=== PATIENT | male | born 1935 | race Caucasian/White ===

== ENCOUNTER 2016-11-08 09:34 | Inpatient (IN) | payer MEDICARE ==
[~2016-11-08] VITALS: Ht 167.6 cm; Wt 68.5 kg
[2016-11-08] VITALS (9 sets, daily range): BP systolic 138–171; BP diastolic 84–100; PULSE 63–112; RESP 20–30; TEMP 97.6–98.3; O2SAT 94–98
[~2016-11-08 09:34] MED LIST: ASPI325T PO; ATOR10 PO; CARB200T16 PO; DOXA1 PO; LISI-360 PO
[2016-11-08] MEDS ORDERED: SODIUM CHLOR 0.9% 1000 ML INJ 1,000 ML IV SCH (10:15)
--- NOTE | 2016-11-08 10:21 | PD ---
HPI Chief Complaint: Fall Time Seen by Provider: 09:58 Travel History International Travel<30 days: No Contact w/Intl Traveler<30days: No Traveled to known affect area: No History of Present Illness HPI 81-year-old male complaining of generalized malaise and weakness. Patient states that he fell a week ago on his knee and had transient bilateral knee and bilateral hip pain at that time. Patient states that the hip pain and the pain resolved completely. Patient states that he has increasing postoperative weakness since then. Patient denies any head injury at that time. Patient states that he fell again last night. Patient is not sure whether he hit his head. Patient states that he has mild headache. Patient denies any neck pain. Patient denies any chest pain or shortness of breath. Patient denies abdominal pain. Patient denies any nausea vomiting diarrhea. Patient denies any dysuria or frequency. Patient denies any fever chills. Patient states that he has history of CVA in the past. Patient denies any history alcohol or illicit drug abuse. Reviewing medical record, patient was admitted to [facility] April 11, 2013 for acute CVA, CAD, hypertension, BPH, leukopenia and thrombocytopenia. Patient was discharged home on aspirin, Plavix and atorvastatin. Patient states that he has not been taking the medications recently. Patient states that he take Plavix once in a while. Patient has history of diabetes, diet control. PFSH Past Medical History Hx Anticoagulant Therapy: Yes Asthma: No Heart Rhythm Problems: No Cancer: No Cardiovascular Problems: Yes High Cholesterol: No Chemotherapy: No Chest Pain: Yes Congestive Heart Failure: No COPD: No Cerebrovascular Accident: Yes (current admission) Diabetes: Yes Patient Takes Glucophage: No Endocrine: Yes Genitourinary: Yes (PROSTATE) Hypertension: Yes Musculoskeletal: No Neurologic: No Psychiatric: No Respiratory: No Migraines: No Seizures: No Sleep Apnea: No Past Surgical History Abdominal Surgery: No Cardiac Surgery: Yes Coronary Stent: Yes (2010) Ear Surgery: No Endocrine Surgery: No Eye Surgery: Yes (cataract surgery left eye) Genitourinary Surgery: No Gynecologic Surgery: No Oral Surgery: No Thoracic Surgery: No Other Surgery: Yes (heart/stent placed 5 years ago) Social History Alcohol Use: No Tobacco Use: No Substance Use: No Allergies-Medications (Allergen,Severity, Reaction): Coded Allergies: No Known Allergies (Unverified , 07/09/11) Reported Meds & Prescriptions Reported Meds & Active Scripts Active Reported Plavix (Clopidogrel Bisulfate) 75 Mg Tab 75 Mg PO DAILY Review of Systems General / Constitutional: No: Fever Eyes: No: Visual changes HENT: No: Headaches Cardiovascular: No: Chest Pain or Discomfort Respiratory: No: Shortness of Breath Gastrointestinal: No: Abdominal Pain Genitourinary: No: Dysuria Musculoskeletal: No: Pain Skin: No Rash Neurologic: No: Weakness Psychiatric: No: Depression Endocrine: No: Polydipsia Hematologic/Lymphatic: No: Easy Bruising Physical Exam Narrative GENERAL: Well-nourished, well-developed patient. SKIN: Focused skin assessment warm/dry. HEAD: Normocephalic. EYES: No scleral icterus. No injection or drainage. NECK: Supple, trachea midline. No JVD or lymphadenopathy. CARDIOVASCULAR: Regular rate and rhythm without murmurs, gallops, or rubs. RESPIRATORY: Breath sounds equal bilaterally. No accessory muscle use. GASTROINTESTINAL: Abdomen soft, non-tender, nondistended. MUSCULOSKELETAL: No cyanosis, or edema. BACK: Nontender without obvious deformity. No CVA tenderness. neurologic exam: Patient awake and alert oriented 3. No obvious focal neurological deficit. Data Data Last Documented VS Vital Signs Date Time Temp Pulse Resp B/P Pulse Ox O2 Delivery O2 Flow Rate FiO2 11/08/16 13:21 100 20 139/87 96 11/08/16 09:38 97.6 Room Air Orders Electrocardiogram (11/08/16 10:06) Complete Blood Count With Diff (11/08/16 10:06) Comprehensive Metabolic Panel (11/08/16 10:06) Prothrombin Time / Inr (Pt) (11/08/16 10:06) Act Partial Throm Time (Ptt) (11/08/16 10:06) Urinalysis - C+S If Indicated (11/08/16 10:06) Chest, Single Ap (11/08/16 10:06) Ct Brain W/O Iv Contrast(Rout) (11/08/16 10:06) Iv Access Insert/Monitor (11/08/16 10:06) Ecg Monitoring (11/08/16 10:06) Oximetry (11/08/16 10:06) Sodium Chlor 0.9% 1000 Ml Inj (Ns 1000 M (11/08/16 10:15) Ct Lumb Spine W/O Contrast (11/08/16 10:11) Pelvis, Ap Only (Routine) (11/08/16 10:11) Labs Laboratory Tests Test 11/08/16 11/08/16 10:05 11:15 White Blood Count 3.8 TH/MM3 Red Blood Count 4.33 MIL/MM3 Hemoglobin 13.6 GM/DL Hematocrit 39.2 % Mean Corpuscular Volume 90.5 FL Mean Corpuscular Hemoglobin 31.4 PG Mean Corpuscular Hemoglobin 34.7 % Concent Red Cell Distribution Width 12.6 % Platelet Count 164 TH/MM3 Mean Platelet Volume 9.2 FL Neutrophils (%) (Auto) 61.3 % Lymphocytes (%) (Auto) 23.0 % Monocytes (%) (Auto) 13.1 % Eosinophils (%) (Auto) 2.2 % Basophils (%) (Auto) 0.4 % Neutrophils # (Auto) 2.3 TH/MM3 Lymphocytes # (Auto) 0.9 TH/MM3 Monocytes # (Auto) 0.5 TH/MM3 Eosinophils # (Auto) 0.1 TH/MM3 Basophils # (Auto) 0.0 TH/MM3 CBC Comment DIFF FINAL Differential Comment Prothrombin Time 12.1 SEC Prothromb Time International 1.1 RATIO Ratio Activated Partial 28.7 SEC Thromboplast Time Sodium Level 133 MEQ/L Potassium Level 3.5 MEQ/L Chloride Level 98 MEQ/L Carbon Dioxide Level 27.3 MEQ/L Anion Gap 8 MEQ/L Blood Urea Nitrogen 20 MG/DL Creatinine 0.89 MG/DL Estimat Glomerular Filtration 82 ML/MIN Rate Random Glucose 101 MG/DL Calcium Level 8.8 MG/DL Total Bilirubin 0.6 MG/DL Aspartate Amino Transf 88 U/L (AST/SGOT) Alanine Aminotransferase 42 U/L (ALT/SGPT) Alkaline Phosphatase 87 U/L Total Protein 7.7 GM/DL Albumin 3.6 GM/DL Urine Color YELLOW Urine Turbidity CLEAR Urine pH 6.0 Urine Specific [place] 1.028 Urine Protein 100 mg/dL Urine Glucose (UA) NEG mg/dL Urine Ketones NEG mg/dL Urine Occult Blood SMALL Urine Nitrite NEG Urine Bilirubin NEG Urine Urobilinogen LESS THAN 2.0 MG/DL Urine Leukocyte Esterase MOD Urine RBC 4 /hpf Urine WBC 8 /hpf Urine Squamous Epithelial 1 /hpf Cells Urine Mucus FEW /lpf Microscopic Urinalysis Comment CULT NOT INDICATED MDM Medical Decision Making Medical Screen Exam Complete: Yes Emergency Medical Condition: Yes Medical Record Reviewed: Yes Interpretation(s) Last Impressions Pelvis X-Ray 11/08/16 1011 Signed Impressions: Service Date/Time: Tuesday, November 08, 2016 10:38 - CONCLUSION: 1. No acute fracture. Joe Pritchard MD Lumbar Spine CT 11/08/16 1011 Signed Impressions: Service Date/Time: Tuesday, November 08, 2016 10:42 - CONCLUSION: 1. Remote fracture of S1-S2 with bony fusion and residual grade 4 anterolisthesis. 2. Remote fusion L3-4. 3. 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 4. Mild superior endplate compression deformity of L1 which appears chronic. No definite acute fracture. Bones are osteopenic. There is fusion across the posterior elements in the lower lumbar spine. Joe Pritchard MD Head CT 11/08/16 1006 Signed Impressions: Service Date/Time: Tuesday, November 08, 2016 10:39 - CONCLUSION: 1. 2.9 cm acute hemorrhage in the right thalamus with trace hemorrhage also present in the occipital horn right lateral ventricle. No significant mass effect. Chronic small vessel white matter ischemic changes similar to 2013. Joe Pritchard MD Chest X-Ray 11/08/16 1006 Signed Impressions: Service Date/Time: Tuesday, November 08, 2016 10:43 - CONCLUSION: 1. No acute findings. Linear scarring or atelectasis right midlung. Joe Pritchard MD 13 12 PM. CBC WBC 3.8. Normal differential. Sodium 133. BUN 20. UA positive with few WBC RBC Differential Diagnosis Differential diagnoses including head injury, chest injury, abdominal injury, extremity injury, electrolyte abnormality, dehydration, TIA, CVA, spinal cord lesion. Narrative Course 81-year-old male with generalized weakness especially lower extremity. Patient had a fall a week ago. Patient states that he fell again last night. Diagnosis Primary Impression: Hemorrhagic cerebrovascular accident (CVA) Admitting Information Admitting Physician Requests: Admit Leonard Rocha MD Nov 08, 2016 10:21
[2016-11-08 10:26] LABS: AUTOMATED NEUTROPHIL # 2.3 TH/MM3 (1.8-7.7); BASOPHIL % 0.4 % (0.0-2.0); EOSINOPHIL # 0.1 TH/MM3 (0-0.4); EOSINOPHIL % 2.2 % (0.0-4.0); HEMATOCRIT 39.2 % (39.0-51.0); HEMO FLAGS DIFF FINAL; LYMPHOCYTE # 0.9 TH/MM3 (1.0-4.8); MEAN CELL VOLUME 90.5 FL (80.0-100.0); MEAN CORPUSCULAR HEMOGLOBIN 31.4 PG (27.0-34.0); MEAN CORPUSCULAR HGB CONC 34.7 % (32.0-36.0); MONO % 13.1 % (0.0-8.0); NEUT % 61.3 % (16.0-70.0); PLATELET COUNT 164 TH/MM3 (150-450); RED BLOOD COUNT 4.33 MIL/MM3 (4.50-5.90); RED CELL DISTRIBUTION WIDTH 12.6 % (11.6-17.2); WHITE BLOOD COUNT 3.8 TH/MM3 (4.0-11.0)
[2016-11-08 10:34] LABS: APTT (PATIENT) 28.7 SEC (24.3-30.1); INTERNATIONAL NORMALIZED RATIO 1.1 RATIO; PROTHROMBIN TIME - PATIENT 12.1 SEC (9.8-11.6)
[2016-11-08 10:47] LABS: ALT (GPT) 42 U/L (12-78); ANION GAP 8 MEQ/L (5-15); AST (GOT) 88 U/L (15-37); BICARBONATE 27.3 MEQ/L (21.0-32.0); BLOOD UREA NITROGEN 20 MG/DL (7-18); CHLORIDE 98 MEQ/L (98-107); GLOMERULAR FILTRATION RATE 82 ML/MIN (>89); POTASSIUM 3.5 MEQ/L (3.5-5.1); SODIUM (NA) 133 MEQ/L (136-145)
[2016-11-08 10:50] LABS: ALKALINE PHOSPHATASE 87 U/L (45-117); TOTAL BILIRUBIN ADULT 0.6 MG/DL (0.2-1.0)
--- NOTE | 2016-11-08 10:50 | RADRPT ---
EXAM DATE/TIME: 11/08/2016 10:43 [facility] COMPARISON: CHEST SINGLE AP, April 12, 2013, 6:40. INDICATIONS : Patient fell last night. Complaint of dizziness and short of breath. MEDICAL HISTORY : None. SURGICAL HISTORY : None. ENCOUNTER: Initial ACUITY: 1 day PAIN SCORE: 0/10 LOCATION: Bilateral chest FINDINGS: A single view of the chest demonstrates linear scarring right midlung. No consolidation or significan t effusion. Tortuous aorta. Advanced osteoarthritis of the shoulder joints with severe rotator cuff d isease on the right. CONCLUSION: 1. No acute findings. Linear scarring or atelectasis right midlung. Joe Pritchard MD on November 08, 2016 at 10:46 Board Certified Radiologist. This report was verified electronically.
--- NOTE | 2016-11-08 10:52 | RADRPT ---
EXAM DATE/TIME: 11/08/2016 10:38 [facility] COMPARISON: No previous studies available for comparison. INDICATIONS : Patient fell last night. Complaint of dizziness and short of breath. MEDICAL HISTORY : None. SURGICAL HISTORY : None. ENCOUNTER: Initial ACUITY: 1 day PAIN SCORE: 0/10 LOCATION: Bilateral Pelvis. FINDINGS: A single frontal view of the pelvis demonstrates no evidence of fracture. The bony pelvic ring is in tact. Bony mineralization is normal. The soft tissues are intact. CONCLUSION: 1. No acute fracture. Joe Pritchard MD on November 08, 2016 at 10:49 Board Certified Radiologist. This report was verified electronically.
--- NOTE | 2016-11-08 11:07 | RADRPT ---
EXAM DATE/TIME: 11/08/2016 10:39 [facility] COMPARISON: MRI BRAIN W/O CONTRAST, April 12, 2013, 7:55. INDICATIONS : Fall last night. RADIATION DOSE: 19.97 CTDIvol (mGy) MEDICAL HISTORY : Cardiovascular disease. Cerebrovascular disease. Hypertension.Diabetes SURGICAL HISTORY : None. ENCOUNTER: Initial ACUITY: 1 day PAIN SCALE: 0/10 LOCATION: cranial TECHNIQUE: Multiple contiguous axial images were obtained of the head. Using automated exposure control and adj ustment of the mA and/or kV according to patient size, radiation dose was kept as low as reasonably a chievable to obtain optimal diagnostic quality images. DICOM format image data is available electro nically for review and comparison. FINDINGS: There is an acute 2.9 cm hemorrhage in the right thalamus without significant mass effect. No shift. There is underlying white matter ischemic change. There is some trace hemorrhage in the occipital horn of the right lateral ventricle. Physiologic calc ifications are present in the basal ganglia. No acute bony abnormalities. CONCLUSION: 1. 2.9 cm acute hemorrhage in the right thalamus with trace hemorrhage also present in the occipital horn right lateral ventricle. No significant mass effect. Chronic small vessel white matter ischemic changes similar to 2013. Joe Pritchard MD on November 08, 2016 at 11:02 Board Certified Radiologist. This report was verified electronically.
--- NOTE | 2016-11-08 11:45 | RADRPT ---
EXAM DATE/TIME: 11/08/2016 10:42 [facility] COMPARISON: No previous studies available for comparison. INDICATIONS : Lower back pain after fall. RADIATION DOSE: 19.97 CTDIvol (mGy) MEDICAL HISTORY : Cardiovascular disease. Hypertension. Diabetes mellitus type 2. SURGICAL HISTORY : None. ENCOUNTER: Initial ACUITY: 1 day PAIN SCALE: 6/10 LOCATION: lower back TECHNIQUE: Volumetric scanning of the lumbar spine was performed. Multiplanar reconstructions in the sagittal, coronal and oblique axial planes were performed. Using automated exposure control and adjustment of the mA and/or kV according to patient size, radiation dose was kept as low as reasonably achievable t o obtain optimal diagnostic quality images. DICOM format image data is available electronically for review and comparison. FINDINGS: There is a remote fracture at S1-2 with a grade 4 anterolisthesis of S1 on S2. There is fusion across S1-S2. There is also fusion across L3-4 without significant residual stenosis. Advanced degenerative disc disease is present at [id number]. There is a grade 1 retrolisthesis of L 2 on L3 associated with mild canal, lateral recess stenosis and bilateral bony foraminal stenosis. Th ere is a mild compression deformity superior endplate L1 which appears chronic. No other significant canal stenosis. Incidental note made of a presumed large left renal cyst. CONCLUSION: 1. Remote fracture of S1-S2 with bony fusion and residual grade 4 anterolisthesis. 2. Remote fusion L3-4. 3. Advanced degenerative disc disease in the upper lumbar spine with a grade 1 retrolisthesis of L2 o n L3 resulting in mild canal, lateral recess and bony foraminal stenosis. 4. Mild superior endplate compression deformity of L1 which appears chronic. No definite acute fractu re. Bones are osteopenic. There is fusion across the posterior elements in the lower lumbar spine. Joe Pritchard MD on November 08, 2016 at 11:35 Board Certified Radiologist. This report was verified electronically.
[2016-11-08 11:48] LABS: BLOOD, URINE SMALL (NEG); COMMENT (UR) CULT NOT INDICATED; CULTURE IF INDICATED CULT NOT INDICATED; GLUCOSE,URINE NEG (NEG); KETONE, URINE NEG (NEG); MUCUS URINE FEW /lpf (OCC); NITRITE,URINE NEG (NEG); SQUAMOUS EPITHELIAL CELL URINE 1 /hpf (0-5); URINE COLOR YELLOW (YELLW/STRAW)
[2016-11-08] MEDS ORDERED: PLAV75TA29 PO (13:22)
--- NOTE | 2016-11-08 15:20 | MB ---
cc: GLENN SEGOVIA M.D., HUNG M.D. DATE OF CONSULTATION: 11/08/[address] Rocha HISTORY OF PRESENT ILLNESS This is an 81-year-old gentleman who presented to the emergency room this morning with complaints of generalized weakness and malaise. He states yesterday he fell down and then began feeling weak. In the emergency room a CT scan of the brain was performed which shows a right thalamic bleed with a small amount of extension of blood into the right lateral ventricle. No mass effect or midline shift and no significant edema. Other than the complaint of generalized weakness the patient also has mild headache but no complaints of visual dysfunction. No complaints of motor or sensory loss. The patient's history is complicated by Plavix use. PAST MEDICAL HISTORY 1. Previous CVA. 2. Coronary artery disease. 3. Hypertension. 4. BPH. 5. Leukopenia. 6. Thrombocytopenia. MEDICATIONS His current medications are Plavix only. He states he was on a hypertensive medication but his physician discontinued it. ALLERGIES No known allergies to medications. HABITS The patient states he does not smoke and he does not use alcohol. REVIEW OF SYSTEMS The review of systems is pertinent as stated in HPI. Also pertinent for a history of chronic knee and hip pain as well as chronic back pain. PHYSICAL EXAMINATION GENERAL: This is a well-nourished, well-developed, slightly disheveled gentleman who is awake and alert in no acute distress. HEENT: Head is normocephalic, atraumatic. Pupils are equal and reactive to light. Extraocular movements are intact. NECK: Supple. Full range of motion. No posterior tenderness. HEART: Regular rate and rhythm. ABDOMEN: Soft and nontender. LUNGS: Equal breath sounds bilaterally. No rales or rhonchi. NEUROLOGIC: The patient is oriented x3. Normal mental status. Speech is intact comprehension. Cranial nerves II through XII are intact. Motor function 5/5 upper and lower extremities without drift. Sensory is intact to primary modalities. The patient has no extinction. Reflexes are hypoactive and symmetric. 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 PLAN The patient will be admitted to intensive care for observation. Repeat CT scan of the brain tomorrow morning. Plavix will be held MD LUCÍA Bartholomew /3:01 PM /3:12 PM
--- NOTE | 2016-11-08 15:40 | HHI.HP ---
HPI Service Critical Care Medicine Primary Care Physician Unknown Admission Diagnosis acute hemorrhagic CVA Diagnosis: Travel History International Travel<30 Days: No Contact w/Intl Traveler <30 Da: No Traveled to Known Affected Are: No History of Present Illness This is an 81-year-old man with a history of a recent prior ischemic stroke and coronary artery disease status post PCI 5 years ago who presents with frequent falling over the past few days. He per report his fallen twice, without injury , but he is not used to falling. He feels like he is dizzy and off balance. He has not passed out or had any presyncopal symptoms. He denies any palpitations. He denies chest pain, shortness of breath, fever, chills, fatigue. In the emergency department he was found to have a right basal ganglia intraparenchymal hemorrhage. He is somewhat of a poor historian and is difficult to get additional information from him. The remainder of the review of systems and history of present illness is negative. Review of Systems ROS Limitations: Poor Historian Respiratory: DENIES: Cough, Wheezing, Sputum production, Shortness of breath Cardiovascular: DENIES: Chest pain, Lower Extremity Edema Gastrointestinal: DENIES: Abdominal pain Neurologic: COMPLAINS OF: Poor Balance, DENIES: Abnormal gait, Headache, Localized weakness Past Family Social History Allergies: Coded Allergies: No Known Allergies (Unverified , 07/09/11) Past Medical History Prostate enlargement Hypertension The patient takes Plavix, he is not sure for what indication, but he states he has not been taking Plavix for the last 2 months because he ran out of his prescription and didn't think he really needed it. Past Surgical History Coronary artery stenting, 2010 Cataract surgery left eye Reported Medications Reportedly on Plavix. See above discussion Active Ordered Medications See MAR Family History reviewed with the patient and found to be noncontributory to his acute illness. Social History The patient states he used to use alcohol regularly, but quit a few years ago. Denies tobacco. Denies drugs of abuse Physical Exam Vital Signs Vital Signs Date Time Temp Pulse Resp B/P Pulse Ox O2 Delivery O2 Flow Rate FiO2 11/08/16 14:56 85 20 160/92 94 11/08/16 13:21 100 20 139/87 96 11/08/16 11:13 97 11/08/16 09:38 97.6 112 20 171/100 94 Room Air Physical Exam GENERAL: Elderly male, lying in bed, awake, alert HEENT: Normocephalic. Atraumatic. Pupils equal, round, reactive, conjugate. Mucous membranes are moist NECK: Trachea is midline. There is no JVD. CHEST: Equal chest rise. Unlabored respirations CARDIOVASCULAR: Normal rate, regular rhythm. Sinus by telemetry ABDOMEN: Soft, nontender, nondistended. No guarding. MUSCULOSKELETAL: Pulses 2+. No peripheral edema. NEUROLOGICAL: RASS 0. GCS 15. CAM -. Alert and oriented. No gross focal motor or sensory deficits. Musculoskeletal strength is 5 out of 5 in all 4 extremities. Sensation grossly intact. Cranial nerves intact. Laboratory Laboratory Tests Test 11/08/16 11/08/16 10:05 11:15 White Blood Count 3.8 Red Blood Count 4.33 Hemoglobin 13.6 Hematocrit 39.2 Mean Corpuscular Volume 90.5 Mean Corpuscular Hemoglobin 31.4 Mean Corpuscular Hemoglobin 34.7 Concent Red Cell Distribution Width 12.6 Platelet Count 164 Mean Platelet Volume 9.2 Neutrophils (%) (Auto) 61.3 Lymphocytes (%) (Auto) 23.0 Monocytes (%) (Auto) 13.1 Eosinophils (%) (Auto) 2.2 Basophils (%) (Auto) 0.4 Neutrophils # (Auto) 2.3 Lymphocytes # (Auto) 0.9 Monocytes # (Auto) 0.5 Eosinophils # (Auto) 0.1 Basophils # (Auto) 0.0 CBC Comment DIFF FINAL Differential Comment Prothrombin Time 12.1 Prothromb Time International 1.1 Ratio Activated Partial 28.7 Thromboplast Time Sodium Level 133 Potassium Level 3.5 Chloride Level 98 Carbon Dioxide Level 27.3 Anion Gap 8 Blood Urea Nitrogen 20 Creatinine 0.89 Estimat Glomerular Filtration 82 Rate Random Glucose 101 Calcium Level 8.8 Total Bilirubin 0.6 Aspartate Amino Transf 88 (AST/SGOT) Alanine Aminotransferase 42 (ALT/SGPT) Alkaline Phosphatase 87 Total Protein 7.7 Albumin 3.6 Urine Color YELLOW Urine Turbidity CLEAR Urine pH 6.0 Urine Specific [place] 1.028 Urine Protein 100 Urine Glucose (UA) NEG Urine Ketones NEG Urine Occult Blood SMALL Urine Nitrite NEG Urine Bilirubin NEG Urine Urobilinogen LESS THAN 2.0 Urine Leukocyte Esterase MOD Urine RBC 4 Urine WBC 8 Urine Squamous Epithelial 1 Cells Urine Mucus FEW Microscopic Urinalysis Comment CULT NOT INDICATED Result Diagram: 11/08/16 1005 11/08/16 1005 Imaging Last Impressions Pelvis X-Ray 11/08/16 1011 Signed Impressions: Service Date/Time: Tuesday, November 08, 2016 10:38 - CONCLUSION: 1. No acute fracture. Joe Pritchard MD Lumbar Spine CT 11/08/16 1011 Signed Impressions: Service Date/Time: Tuesday, November 08, 2016 10:42 - CONCLUSION: 1. Remote fracture of S1-S2 with bony fusion and residual grade 4 anterolisthesis. 2. Remote fusion L3-4. 3. 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 4. Mild superior endplate compression deformity of L1 which appears chronic. No definite acute fracture. Bones are osteopenic. There is fusion across the posterior elements in the lower lumbar spine. Joe Pritchard MD Head CT 11/08/16 1006 Signed Impressions: Service Date/Time: Tuesday, November 08, 2016 10:39 - CONCLUSION: 1. 2.9 cm acute hemorrhage in the right thalamus with trace hemorrhage also present in the occipital horn right lateral ventricle. No significant mass effect. Chronic small vessel white matter ischemic changes similar to 2013. Joe Pritchard MD Chest X-Ray 11/08/16 1006 Signed Impressions: Service Date/Time: Tuesday, November 08, 2016 10:43 - CONCLUSION: 1. No acute findings. Linear scarring or atelectasis right midlung. Joe Pritchard MD Assessment and Plan Assessment and Plan Assessment: 81yM s/p recent ischemic stroke now with right BG IPH with only neurologic presentation being frequent falls. Per the patient's report, he has not taken any plavix in 2 months because he ran out and stopped taking it. We will admit to the ICU, frequent neuro checks, 24h interval head CT, and blood pressure control. Plan: Right basal ganglia IPH -- frequent neuro checks -- interval head CT -- sbp < 150 -- nursing bedside swallow evaluation and advance diet. -- neurosurgery consult Hypertension -- prn labetalol, hydralazine -- goal sbp < 150 Antiplatelet therapy -- unknown indication, but likely was the ischemic stroke -- continue to hold antiplatelet and anticoagulation therapy given new IPH SCDs. PPI Dispo: admit to the ICU. Dewey Baptiste MD Nov 08, 2016 15:40
[2016-11-08] MEDS ORDERED: MAGNESIUM SULFATE INJ 4 GM in SODIUM CHLORIDE 0.9% INJ 92 ML IV PRN (15:45)
[2016-11-08] MEDS ORDERED: MISCELLANEOUS NURSING INFORMATION XX SCH (15:45)
[2016-11-08] MEDS ORDERED: MAGNESIUM SULFATE INJ 2 GM in SODIUM CHLORIDE 0.9% INJ 96 ML IV PRN (15:45)
[2016-11-08] MEDS ORDERED: POTASSIUM PHOSPHATE MONOBASIC 500 MG TAB PO PRN (15:45)
[2016-11-08] MEDS ORDERED: MAGNESIUM OXIDE 400 MG TAB PO PRN (15:45)
[2016-11-08] MEDS ORDERED: SODIUM CHLORIDE 0.9% FLUSH 10 ML FLUSH IVF PRN (15:45)
[2016-11-08] MEDS ORDERED: RESP: ALBUTEROL 2.5 MG/IPRATROPIUM 0.5 MG NEB (PRN) INH (15:45)
[2016-11-08] MEDS ORDERED: POTASSIUM PHOSPHATE MONOBASIC 500 MG TAB PO/TUBE PRN (15:45)
[2016-11-08] MEDS ORDERED: POTASSIUM CHLOR 40 MEQ PREMIX 100 ML IV PRN ×2 (15:45)
[2016-11-08] MEDS ORDERED: LABETALOL HCL 100 MG/20 ML VIAL IV PUSH PRN (15:45)
[2016-11-08] MEDS ORDERED: POTASSIUM PHOSPHATE INJ 30 MMOL in SODIUM CHLOR 0.9% 250 ML INJ 250 ML IV PRN (15:45)
[2016-11-08] MEDS ORDERED: POTASSIUM CHLOR 20 MEQ PREMIX 100 ML IV PRN ×2 (15:45)
[2016-11-08] MEDS ORDERED: ONDANSETRON HCL 4 MG/2 ML VIAL IV PRN ×2 (15:45)
[2016-11-08] MEDS ORDERED: DEXTROSE 50% IN WATER 50 ML VIAL(D50) IV PUSH PRN (15:45)
[2016-11-08] MEDS ORDERED: CHLORHEXIDINE GLUCONATE 2 % 1 PACK (2 CLOTHS) TOP PRN (15:45)
[2016-11-08] MEDS ORDERED: SODIUM PHOSPHATE INJ 30 MMOL in SODIUM CHLOR 0.9% 250 ML INJ 240 ML IV PRN (15:45)
[2016-11-08] MEDS: INSULIN NovoLIN REGULAR SUPPLEMENTAL SCALE SQ SCH ×2 (16:00→20:37)
[2016-11-08] MEDS: SODIUM CHLOR 0.9% 1000 ML INJ 1,000 ML IV SCH (16:16)
--- NOTE | 2016-11-08 16:34 | EKG ---
Date Performed: 11/08/2016 Time Performed: 11:12:30 PTAGE: 81 years EKG: Sinus rhythm WITH OCCASIONAL VENTRICULAR PREMATURE COMPLEXES WITH OCCASIONAL SUPRAVENTRICULAR PREMATURE COMPLEXES RIGHT BUNDLE BRANCH BLOCK LEFT ANTERIOR FASCICULAR BLOCK ABNORMAL ECG PREVIOUS TRACING : 11/08/2016 09.55 Compared to prior tracing no significant change DOCTOR: Varghese Corea Interpretating Date/Time 11/08/2016 16:33:34
[2016-11-08] MEDS: hydrALAZINE HCL 20 MG/ML VIAL IV PUSH PRN ×2 (18:28→20:36)
[2016-11-08] MEDS: FAMOTIDINE 20 MG TAB PO SCH (19:28)
[2016-11-08] MEDS: ACETAMINOPHEN 325 MG TAB PO PRN (19:28)
[2016-11-08] MEDS: DOCUSATE SODIUM 50 MG/SENNA 8.6 MG TAB PO SCH (19:28)
[2016-11-08] MEDS: ACETAMINOPHEN/HYDROcodone 325 MG/5 MG TAB PO PRN (21:24)
[2016-11-08] MEDS: SODIUM CHLORIDE 0.9% FLUSH 10 ML FLUSH IV FLUSH SCH (21:24)
[2016-11-09] VITALS (12 sets, daily range): BP systolic 115–151; BP diastolic 68–90; PULSE 92–108; RESP 16–25; TEMP 97.2–98.3; O2SAT 94–100
[2016-11-09] MEDS: hydrALAZINE HCL 20 MG/ML VIAL IV PUSH PRN (00:15)
[2016-11-09] MEDS: INSULIN NovoLIN REGULAR SUPPLEMENTAL SCALE SQ SCH ×5 (03:00→20:48)
[2016-11-09] MEDS: CHLORHEXIDINE GLUCONATE 2 % 1 PACK (2 CLOTHS) TOP SCH (04:00)
[2016-11-09] MEDS: SODIUM CHLOR 0.9% 1000 ML INJ 1,000 ML IV SCH ×2 (04:30→15:23)
[2016-11-09 04:42] LABS: HEMATOCRIT 40.9 % (39.0-51.0); MEAN CELL VOLUME 90.7 FL (80.0-100.0); MEAN CORPUSCULAR HEMOGLOBIN 31.7 PG (27.0-34.0); MEAN CORPUSCULAR HGB CONC 34.9 % (32.0-36.0); PLATELET COUNT 146 TH/MM3 (150-450); RED BLOOD COUNT 4.51 MIL/MM3 (4.50-5.90); RED CELL DISTRIBUTION WIDTH 12.6 % (11.6-17.2); REVIEW FLAG FINAL; WHITE BLOOD COUNT 4.1 TH/MM3 (4.0-11.0)
[2016-11-09 04:54] LABS: BICARBONATE 23.5 MEQ/L (21.0-32.0)
[2016-11-09 04:55] LABS: POTASSIUM 4.2 MEQ/L (3.5-5.1)
--- NOTE | 2016-11-09 06:28 | RADRPT ---
EXAM DATE/TIME: 11/09/2016 04:47 [place] COMPARISON: CT BRAIN W/O CONTRAST, November 08, 2016, 10:39. INDICATIONS : Follow up hemorrhage. RADIATION DOSE: 40.83 CTDIvol (mGy) MEDICAL HISTORY : Cerebrovascular disease. Hypertension. SURGICAL HISTORY : None. ENCOUNTER: Subsequent ACUITY: 1 day PAIN SCALE: 0/10 LOCATION: cranial TECHNIQUE: Multiple contiguous axial images were obtained of the head. Using automated exposure control and adj ustment of the mA and/or kV according to patient size, radiation dose was kept as low as reasonably a chievable to obtain optimal diagnostic quality images. DICOM format image data is available electro nically for review and comparison. 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 There is intraventricula r hemorrhage on the right. Scattered areas of low attenuation throughout the white matter. The ventri cles are normal for age. No evidence of midline shift, mass lesion or acute infarction. No extra-ax ial fluid collections are seen. POSTERIOR FOSSA: The cerebellum and brainstem are intact. The 4th ventricle is midline. The cerebellopontine angle i s unremarkable. EXTRACRANIAL: The visualized portion of the orbits is intact. SKULL: The calvaria is intact. No evidence of skull fracture. CONCLUSION: 1. 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 2. Small amount of intraventricular hemorrhage. 3. Chronic ischemic small vessel vasculopathy. King Johnson MD on November 09, 2016 at 6:25 Board Certified Radiologist. This report was verified electronically.
--- NOTE | 2016-11-09 07:18 | HHI.CCPN ---
Subjective Remarks/Hospital Course Hospital Course: This is an 81-year-old man with a history of a recent prior ischemic stroke and coronary artery disease status post PCI 5 years ago who presents with frequent falling over the past few days. He per report his fallen twice, without injury , but he is not used to falling. He feels like he is dizzy and off balance. He has not passed out or had any presyncopal symptoms. He denies any palpitations. He denies chest pain, shortness of breath, fever, chills, fatigue. In the emergency department he was found to have a right basal ganglia intraparenchymal hemorrhage. He is somewhat of a poor historian and is difficult to get additional information from him. The remainder of the review of systems and history of present illness is negative. Subjective: 11/09: no changes. neuro intact. repeat head CT stable head bleed. tolerating diet. without complaints. did not sleep at all last night. Objective Vital Signs Date Time Temp Pulse Resp B/P Pulse Ox O2 Delivery O2 Flow Rate FiO2 11/09/16 06:00 98.2 106 25 119/72 96 11/08/16 20:23 Room Air Intake and Output 11/08/16 11/08/16 11/09/16 08:00 16:00 00:00 Intake Total 789 ml Output Total 425 ml Balance 364 ml Result Diagram: 11/09/16 0413 11/09/16 0413 Imaging Last Impressions Pelvis X-Ray 11/08/16 1011 Signed Impressions: Service Date/Time: Tuesday, November 08, 2016 10:38 - CONCLUSION: 1. No acute fracture. Joe Pritchard MD Lumbar Spine CT 11/08/16 1011 Signed Impressions: Service Date/Time: Tuesday, November 08, 2016 10:42 - CONCLUSION: 1. Remote fracture of S1-S2 with bony fusion and residual grade 4 anterolisthesis. 2. Remote fusion L3-4. 3. 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 4. Mild superior endplate compression deformity of L1 which appears chronic. No definite acute fracture. Bones are osteopenic. There is fusion across the posterior elements in the lower lumbar spine. Joe Pritchard MD Head CT 11/08/16 1006 Signed Impressions: Service Date/Time: Tuesday, November 08, 2016 10:39 - CONCLUSION: 1. 2.9 cm acute hemorrhage in the right thalamus with trace hemorrhage also present in the occipital horn right lateral ventricle. No significant mass effect. Chronic small vessel white matter ischemic changes similar to 2013. Joe Pritchard MD Chest X-Ray 11/08/16 1006 Signed Impressions: Service Date/Time: Tuesday, November 08, 2016 10:43 - CONCLUSION: 1. No acute findings. Linear scarring or atelectasis right midlung. Joe Pritchard MD Objective Remarks GENERAL: Elderly male, lying in bed, awake, alert HEENT: Normocephalic. Atraumatic. Pupils equal, round, reactive, conjugate. Mucous membranes are moist NECK: Trachea is midline. There is no JVD. CHEST: Equal chest rise. Unlabored respirations CARDIOVASCULAR: Normal rate, regular rhythm. Sinus by telemetry ABDOMEN: Soft, nontender, nondistended. No guarding. MUSCULOSKELETAL: Pulses 2+. No peripheral edema. NEUROLOGICAL: RASS 0. GCS 15. CAM -. Alert and oriented. No gross focal motor or sensory deficits. Musculoskeletal strength is 5 out of 5 in all 4 extremities. Sensation grossly intact. Cranial nerves intact. A/P Assessment and Plan Assessment: 81yM s/p recent ischemic stroke now with right Thalamic IPH with only neurologic presentation being frequent falls. Per the patient's report, he has not taken any plavix in 2 months because he ran out and stopped taking it. Stable appearance of hemorrhage on interval head CT. will transition him to hospitalist service and to the floor. Plan: Right thalamic IPH -- liberalize neuro checks to q4h. -- interval head CT: no acute change. -- sbp < 150 -- regular diet as tolerated. -- neurosurgery consult Hypertension -- start amlodipine 10mg daily -- start lisinopril 10mg daily -- prn labetalol, hydralazine -- goal sbp < 150 Antiplatelet therapy -- unknown indication, but likely was the ischemic stroke -- continue to hold antiplatelet and anticoagulation therapy given new IPH Insomnia -- melatonin qHS for sleep -- zyprexa 2.5mg nightly if not asleep by 11pm -- given his age, high risk for delirium. we need to restore sleep-wake cycle. SCDs. PPI Dispo: transfer to hospitalist service. could consider transfer to floor. Dewey Baptiste MD Nov 09, 2016 07:18
[2016-11-09] MEDS: FAMOTIDINE 20 MG TAB PO SCH ×2 (08:30→20:47)
[2016-11-09] MEDS: LISINOPRIL 10 MG TAB PO SCH (08:30)
[2016-11-09] MEDS: DOCUSATE SODIUM 50 MG/SENNA 8.6 MG TAB PO SCH ×2 (08:30→20:48)
[2016-11-09] MEDS: SODIUM CHLORIDE 0.9% FLUSH 10 ML FLUSH IV FLUSH SCH ×2 (08:31→20:48)
[2016-11-09] MEDS: ACETAMINOPHEN/HYDROcodone 325 MG/5 MG TAB PO PRN ×3 (08:31→20:48)
[2016-11-09] MEDS ORDERED: PNEUMOCOCCAL POLYVALENT INJ 25 MCG/0.5 ML SYR IM ONE (10:00)
[2016-11-09] MEDS: MELATONIN 5 MG TAB PO SCH (20:47)
[2016-11-09] MEDS ORDERED: OLANZapine ODT 5 MG TAB PO PRN (23:00)
[2016-11-10] VITALS: BP 131/71; PULSE 86; RESP 20; TEMP 97.4; O2SAT 98
[2016-11-10] MEDS: INSULIN NovoLIN REGULAR SUPPLEMENTAL SCALE SQ SCH ×5 (01:57→20:07)
[2016-11-10] MEDS: CHLORHEXIDINE GLUCONATE 2 % 1 PACK (2 CLOTHS) TOP SCH (01:58)
[2016-11-10] MEDS: ACETAMINOPHEN/HYDROcodone 325 MG/5 MG TAB PO PRN ×2 (03:56→20:06)
[2016-11-10 04:00] VITALS: BP 157/87; PULSE 92; RESP 18; TEMP 97.1; O2SAT 97
[2016-11-10 07:08] LABS: HEMATOCRIT 38.3 % (39.0-51.0); MEAN CELL VOLUME 91.5 FL (80.0-100.0); MEAN CORPUSCULAR HEMOGLOBIN 32.1 PG (27.0-34.0); MEAN CORPUSCULAR HGB CONC 35.1 % (32.0-36.0); PLATELET COUNT 163 TH/MM3 (150-450); RED BLOOD COUNT 4.18 MIL/MM3 (4.50-5.90); RED CELL DISTRIBUTION WIDTH 12.3 % (11.6-17.2); REVIEW FLAG FINAL; WHITE BLOOD COUNT 5.5 TH/MM3 (4.0-11.0)
[2016-11-10 07:16] LABS: BICARBONATE 20.9 MEQ/L (21.0-32.0); POTASSIUM 3.7 MEQ/L (3.5-5.1)
[2016-11-10] MEDS: FAMOTIDINE 20 MG TAB PO SCH ×2 (07:50→20:06)
[2016-11-10] MEDS: LISINOPRIL 10 MG TAB PO SCH (07:50)
[2016-11-10] MEDS: DOCUSATE SODIUM 50 MG/SENNA 8.6 MG TAB PO SCH ×2 (07:50→20:06)
[2016-11-10] MEDS: SODIUM CHLORIDE 0.9% FLUSH 10 ML FLUSH IV FLUSH SCH ×2 (07:52→20:07)
[2016-11-10 08:10] VITALS: BP 145/83; PULSE 95; RESP 19; TEMP 97.2; O2SAT 98
--- NOTE | 2016-11-10 09:23 | HHI.PR ---
Subjective Remarks Follow-up for intracranial bleed Patient stated that he feels better. He stated that his walking has gotten better. He stated that he still feels unsteady and does need assistance. Deny any headache, visual changes, nausea vomiting. Patient complains of nasal congestion in which he is asking something for that. His nurse had no complaints. Otherwise patient feels like he is doing well. Objective Vitals Vital Signs Date Time Temp Pulse Resp B/P Pulse Ox O2 Delivery O2 Flow Rate FiO2 11/10/16 08:10 97.2 95 19 145/83 98 11/10/16 04:00 97.1 92 18 157/87 97 11/10/16 00:00 97.4 86 20 131/71 98 11/09/16 20:00 97.3 101 20 135/81 94 11/09/16 18:23 97.2 102 19 125/74 97 11/09/16 16:00 92 11/09/16 16:00 98.0 92 16 136/68 11/09/16 14:52 100 21 11/09/16 14:00 100 11/09/16 12:00 98.1 107 21 115/81 94 11/09/16 12:00 107 11/09/16 10:00 108 I/O 11/09/16 11/09/16 11/09/16 11/10/16 11/10/16 11/10/16 07:00 15:00 23:00 07:00 15:00 23:00 Intake Total 956 ml 1605 ml 275 ml Output Total 475 ml 235 ml 510 ml Balance 481 ml 1370 ml -235 ml Intake Oral 340 ml 960 ml 100 ml IV Total 616 ml 645 ml 175 ml Output Urine Total 475 ml 235 ml 510 ml # Voids 2 1 # Bowel Movements 0 0 1 1 Result Diagram: 11/10/16 0612 11/10/16 06 Objective Remarks GENERAL: in NAD EYES: No scleral icterus. No injection or drainage. PERRLA NECK: Supple, trachea midline. No JVD or lymphadenopathy. CARDIOVASCULAR: Regular rate and rhythm without murmurs, gallops, or rubs. RESPIRATORY: Breath sounds equal bilaterally. No accessory muscle use. GASTROINTESTINAL: Abdomen soft, non-tender, nondistended. NEURO: AAO X 3. Coordination with finger to nose touch was mildly off but patient was able to complete task. Unable to assess gait by myself due to increase risk of falls. PT is following. Strength and sensation is grossly intact. Medications and IVs Current Medications Sodium Chloride (NS 1000 ml Inj) 1,000 ml @ 125 mls/hr Q8H IV Last administered on 11/08/16 10:15; Start 11/08/16 at 10:15; Stop 11/08/16 at 15:49 ; Status DC Ondansetron HCl (Zofran Inj) 4 mg Q6H PRN IV NAUSEA OR VOMITING; Start at 15:45; Stop 11/08/16 at 15:50; Status DC Acetaminophen (Tylenol) 650 mg Q4H PRN PO Temp>101F, Headache Last administered on 11/08/16 19:28; Start 11/08/16 at 15:45 Sodium Chloride (NS Flush) 2 ml BID IV FLUSH Last administered on 11/09/16 20: 48; Start 11/08/16 at 21:00 Sodium Chloride (NS Flush) 2 ml UNSCH PRN IVF FLUSH AFTER USING IV ACCESS; Start 11/08/16 at 15:45 Labetalol HCl (Trandate Inj) 20 mg Q15M PRN IV PUSH sbp > 160; Start 11/08/16 at 15:45 Hydralazine HCl (Apresoline Inj) 10 mg Q30M PRN IV PUSH sbp > 160 Last administered on 11/09/16 00:15; Start 11/08/16 at 15:45 Magnesium Oxide 800 mg 800 mg UNSCH PRN PO For Magnesium 1.2 - 1.6 mg/dL; Start 11/08/16 at 15:45; Stop 11/10/16 at 08:17; Status DC Magnesium Sulfate 4 gm/Sodium Chloride 100 ml @ 50 mls/hr UNSCH PRN IV For Magnesium 0.9 - 1.1 mg/dL; Start 11/08/16 at 15:45; Stop 11/10/16 at 08:17; Status DC Magnesium Sulfate 2 gm/Sodium Chloride 100 ml @ 50 mls/hr UNSCH PRN IV For Magnesium 1.2 - 1.6 mg/dL; Start 11/08/16 at 15:45; Stop 11/10/16 at 08:17; Status DC Potassium Chloride 100 ml @ 50 mls/hr Q2H PRN IV For Potassium 2.8 - 3.2 mEq/L ; Start 11/08/16 at 15:45; Stop 11/10/16 at 08:17; Status DC Potassium Chloride 100 ml @ 50 mls/hr Q2H PRN IV For Potassium 3.3 - 3.5 mEq/L ; Start 11/08/16 at 15:45; Stop 11/10/16 at 08:17; Status DC Potassium Chloride 100 ml @ 50 mls/hr Q2H PRN IV For Potassium 2.8 - 3.2 mEq/L ; Start 11/08/16 at 15:45; Stop 11/10/16 at 08:17; Status DC Potassium Chloride (KCl 40 Meq Premix Inj) 100 ml @ 25 mls/hr UNSCH PRN IV For Potassium 3.3 - 3.5 mEq/L; Start 11/08/16 at 15:45; Stop 11/10/16 at 08:17; Status DC Potassium Phosphate (K-Phos) 2,000 mg Q4H PRN PO For Phosphorus < 2.5 mg/dL; Start 11/08/16 at 15:45; Stop 11/10/16 at 08:17; Status DC Potassium Phosphate 2000 mg 2,000 mg UNSCH PRN PO/TUBE SEE LABEL COMMENTS; Start 11/08/16 at 15:45; Stop 11/10/16 at 08:17; Status DC Potassium Phosphate 30 mmol/ Sodium Chloride 260 ml @ 42 mls/hr UNSCH PRN IV SEE LABEL COMMENTS; Start 11/08/16 at 15:45; Stop 11/10/16 at 08:17; Status DC Sodium Phosphate/ Sodium Chloride (Sodium Phosphate Inj/NS 250 ml Inj) 250 ml @ 42 mls/hr UNSCH PRN IV For Phosphorus < 2.5 mg/dL; Start 11/08/16 at 15:45; Stop 11/10/16 at 08:17; Status DC Dextrose (D50w (Vial) Inj) 25 ml UNSCH PRN IV PUSH HYPOGLYCEMIA-SEE COMMENTS; Start 11/08/16 at 15:45 Insulin Human Regular 1 1 ACHS AND 3AM SQ ; Start 11/08/16 at 16:00 Sodium Chloride (NS 1000 ml Inj) 1,000 ml @ 84 mls/hr [id number] IV Last administered on 11/09/16 04:30; Start 11/08/16 at 15:33; Stop 11/09/16 at 16:08 ; Status DC Famotidine (Pepcid) 20 mg Q12HR PO Last administered on 11/10/16 07:50; Start 11/08/16 at 21:00 Ondansetron HCl (Zofran Inj) 4 mg Q6H PRN IV NAUSEA OR VOMITING; Start at 15:45 Albuterol/ Ipratropium (Duoneb Neb) 1 ampule Q2HR NEB PRN INH WHEEZING; Start 11/08/16 at 15:45 Miscellaneous Information 1 [id number] XX Last administered on 11/08/16 15:45; Start 11/08/16 at 15:45 Chlorhexidine Gluconate (Chlorhexidine 2% Cloth) 3 pack Taper DAILY@04 TOP Last administered on 11/09/16 04:00; Start 11/09/16 at 04:00; Stop 11/05/17 at 03:59 Chlorhexidine Gluconate (Chlorhexidine 2% Cloth) 3 pack UNSCH PRN TOP HYGIENIC CARE; Start 11/08/16 at 15:45 Senna/Docusate Sodium (Rekha-Colace) 1 tab BID PO Last administered on 07:50; Start 11/08/16 at 21:00 Acetaminophen/ Hydrocodone Bitart ([place] 5-325 Mg) 1 tab Q6H PRN PO headache, severe Last administered on 11/10/16 03:56; Start 11/08/16 at 21:15 Pneumococcal Polyvalent Vaccine (Pneumovax-23 Inj) 25 mcg ONCE ONCE IM Last administered on 11/09/16 09:38; Start 11/09/16 at 10:00; Stop 11/09/16 at 10:01 ; Status DC Amlodipine Besylate (Norvasc) 10 mg DAILY PO Last administered on 11/10/16 07: 50; Start 11/09/16 at 09:00 Lisinopril (Prinivil) 10 mg DAILY PO Last administered on 11/10/16 07:50; Start 11/09/16 at 09:00 Melatonin (Melatonin) 5 mg HS PO Last administered on 11/09/16 20:47; Start 6 /24/17 at 21:00 Olanzapine (ZyPREXA ZYDIS ODT) 5 mg Q24H PRN PO if not asleep by 2300; Start at 23:00 A/P Assessment and Plan Assessment: 81yM s/p recent ischemic stroke now with right Thalamic IPH with only neurologic presentation being frequent falls. Right thalamic IPH -Improving. Continue with PT. Patient will need to be in SNF upon discharge. - neuro checks to q4h. - CT scan repeated on 11/09/2016 showed stable intracranial bleed or mildly decreased. - sbp < 150 - regular diet as tolerated. - neurosurgery consulted and ff. Hypertension -on amlodipine 10mg daily and lisinopril. -Will put on clonidine when necessary. History of ischemic stroke -Patient on Plavix but was held due to intracranial hemorrhage. Neurosurgeon to determine if patient can restart Plavix. Insomnia -on melatonin qHS for sleep -on zyprexa 2.5mg nightly if not asleep by 11pm SCDs. PPI Discharge Planning Patient is medically stable and has pulled his IV out multiple times. At the moment since he does not require any IV medication and is medically stable can leave IV out. Patient will need to be discharged to SNF. Prabha Montemayor MD Nov 10, 2016 09:23
[2016-11-10] MEDS ORDERED: SODIUM CHLORIDE 0.65% NASAL SPRAY 45 ML BTL EACH NARE PRN (09:30)
[2016-11-10] MEDS ORDERED: cloNIDine HCL 0.1 MG TAB PO PRN (09:30)
--- NOTE | 2016-11-10 10:21 | HHI.NSPN ---
History Interval History This is an 81-year-old gentleman who presented to the emergency room this morning with complaints of generalized weakness and malaise. He states yesterday he fell down and then began feeling weak. In the emergency room a CT scan of the brain was performed which shows a right thalamic bleed with a small amount of extension of blood into the right lateral ventricle. No mass effect or midline shift and no significant edema. 11/10: Patient is awake and alert with no complaints of headache or nausea. No visual disturbances, motor or sensory loss. Exam Results Vital Signs Date Time Temp Pulse Resp B/P Pulse Ox O2 Delivery O2 Flow Rate FiO2 11/10/16 08:10 97.2 95 19 145/83 98 11/09/16 14:52 21 11/09/16 07:00 Room Air Intake and Output 11/09/16 11/09/16 11/10/16 08:00 16:00 00:00 Intake Total 956 ml 1880 ml Output Total 475 ml 395 ml 350 ml Balance 481 ml 1485 ml -350 ml Physical Examination Neurological: Patient is alert and oriented 3 with normal mental status. Speech is intact account and comprehension. Cranial nerves II through XII are intact. Motor function 5 over 5 of her lower extremities with slight decrease left hand blind aide. Sensory intact. Repeat CT scan of the brain shows a stable right thalamic hemorrhage with small amount of blood in the posterior horn of the right lateral ventricle. No midline shift or mass effect. Lab, Micro, Other Results Last Impressions Head CT 11/09/16 0800 Signed Impressions: Service Date/Time: Wednesday, November 09, 2016 04:47 - CONCLUSION: 1. 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 2. Small amount of intraventricular hemorrhage. 3. Chronic ischemic small vessel vasculopathy. King Johnson MD Pelvis X-Ray 11/08/16 1011 Signed Impressions: Service Date/Time: Tuesday, November 08, 2016 10:38 - CONCLUSION: 1. No acute fracture. Joe Pritchard MD Lumbar Spine CT 11/08/16 1011 Signed Impressions: Service Date/Time: Tuesday, November 08, 2016 10:42 - CONCLUSION: 1. Remote fracture of S1-S2 with bony fusion and residual grade 4 anterolisthesis. 2. Remote fusion L3-4. 3. 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 4. Mild superior endplate compression deformity of L1 which appears chronic. No definite acute fracture. Bones are osteopenic. There is fusion across the posterior elements in the lower lumbar spine. Joe Pritchard MD Chest X-Ray 11/08/16 1006 Signed Impressions: Service Date/Time: Tuesday, November 08, 2016 10:43 - CONCLUSION: 1. No acute findings. Linear scarring or atelectasis right midlung. Joe Pritchard MD Medical Decision Making Impression and Plan Status post right thalamic hemorrhage which is stable on serial CT scans. Patient's neurological examination stable. Plan: No neurosurgical intervention indicated. Neurosurgical sign off at this time please reconsult as needed. Satnam Holbrook MD Nov 10, 2016 10:21
[2016-11-10 11:58] VITALS: BP 141/88; PULSE 109; RESP 20; TEMP 97.2; O2SAT 96
[2016-11-10 15:55] VITALS: BP 147/90; PULSE 113; RESP 19; TEMP 98.6; O2SAT 96
[2016-11-10 20:00] VITALS: BP 156/91; PULSE 113; RESP 18; TEMP 97.7; O2SAT 93
[2016-11-10] MEDS: MELATONIN 5 MG TAB PO SCH (20:14)
[2016-11-11] VITALS: BP 168/73; PULSE 98; RESP 18; TEMP 96.8; O2SAT 95
[2016-11-11] MEDS: INSULIN NovoLIN REGULAR SUPPLEMENTAL SCALE SQ SCH ×5 (02:01→20:25)
[2016-11-11] MEDS: CHLORHEXIDINE GLUCONATE 2 % 1 PACK (2 CLOTHS) TOP SCH (03:27)
[2016-11-11] MEDS: ACETAMINOPHEN/HYDROcodone 325 MG/5 MG TAB PO PRN (03:59)
[2016-11-11 04:00] VITALS: BP 155/98; PULSE 98; RESP 18; TEMP 97; O2SAT 97
[2016-11-11 08:00] VITALS: BP 157/98; PULSE 100; RESP 20; TEMP 97.3; O2SAT 97
[2016-11-11] MEDS: SODIUM CHLORIDE 0.9% FLUSH 10 ML FLUSH IV FLUSH SCH ×2 (08:39→19:51)
[2016-11-11] MEDS: FAMOTIDINE 20 MG TAB PO SCH ×2 (08:39→20:24)
[2016-11-11] MEDS: DOCUSATE SODIUM 50 MG/SENNA 8.6 MG TAB PO SCH ×2 (08:40→20:24)
[2016-11-11] MEDS: LISINOPRIL 10 MG TAB PO SCH (08:40)
[2016-11-11 09:18] LABS: HEMATOCRIT 38.9 % (39.0-51.0); MEAN CELL VOLUME 90.3 FL (80.0-100.0); MEAN CORPUSCULAR HEMOGLOBIN 31.3 PG (27.0-34.0); MEAN CORPUSCULAR HGB CONC 34.7 % (32.0-36.0); PLATELET COUNT 181 TH/MM3 (150-450); RED BLOOD COUNT 4.31 MIL/MM3 (4.50-5.90); RED CELL DISTRIBUTION WIDTH 12.4 % (11.6-17.2); REVIEW FLAG FINAL; WHITE BLOOD COUNT 4.8 TH/MM3 (4.0-11.0)
[2016-11-11 09:48] LABS: BICARBONATE 27.9 MEQ/L (21.0-32.0); POTASSIUM 3.4 MEQ/L (3.5-5.1)
[2016-11-11] MEDS ORDERED: LISINOPRIL 10 MG TAB PO ONE (10:00)
--- NOTE | 2016-11-11 10:18 | HHI.PR ---
Subjective Remarks Follow-up for intracranial bleed Patient has no complaints. There has been no acute events since he was last seen. Patient feels like he's ambling better but continues to have an ataxic gait. Per patient's nurse he stills needs 24-hour assistance and is wobbly on his feet. She is concern that he may fall if he goes home. Deny any headache, nausea/ vomiting, or any other new focal neurological deficits. Objective Vitals Vital Signs Date Time Temp Pulse Resp B/P Pulse Ox O2 Delivery O2 Flow Rate FiO2 11/11/16 08:00 97.3 100 20 157/98 97 11/11/16 04:00 97.0 98 18 155/98 97 11/11/16 00:00 96.8 98 18 168/73 95 11/10/16 20:00 97.7 113 18 156/91 93 11/10/16 15:55 98.6 113 19 147/90 96 11/10/16 11:58 97.2 109 20 141/88 96 I/O 11/10/16 11/10/16 11/10/16 11/11/16 11/11/16 11/11/16 07:00 15:00 23:00 07:00 15:00 23:00 Intake Total 240 ml 360 ml Output Total 350 ml Balance -110 ml 360 ml Intake Oral 240 ml 360 ml Output Urine Total 350 ml # Voids 2 4 # Bowel Movements 1 Result Diagram: 11/11/16 0908 11/11/16 0908 Imaging Last Impressions Head CT 11/09/16 0800 Signed Impressions: Service Date/Time: Wednesday, November 09, 2016 04:47 - CONCLUSION: 1. 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 2. Small amount of intraventricular hemorrhage. 3. Chronic ischemic small vessel vasculopathy. King Johnson MD Pelvis X-Ray 11/08/16 1011 Signed Impressions: Service Date/Time: Tuesday, November 08, 2016 10:38 - CONCLUSION: 1. No acute fracture. Joe Pritchard MD Lumbar Spine CT 11/08/16 1011 Signed Impressions: Service Date/Time: Tuesday, November 08, 2016 10:42 - CONCLUSION: 1. Remote fracture of S1-S2 with bony fusion and residual grade 4 anterolisthesis. 2. Remote fusion L3-4. 3. 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 4. Mild superior endplate compression deformity of L1 which appears chronic. No definite acute fracture. Bones are osteopenic. There is fusion across the posterior elements in the lower lumbar spine. Joe Pritchard MD Chest X-Ray 11/08/16 1006 Signed Impressions: Service Date/Time: Tuesday, November 08, 2016 10:43 - CONCLUSION: 1. No acute findings. Linear scarring or atelectasis right midlung. Joe Pritchard MD Objective Remarks GENERAL: in NAD EYES: No scleral icterus. No injection or drainage. PERRLA NECK: Supple, trachea midline. No JVD or lymphadenopathy. CARDIOVASCULAR: Regular rate and rhythm without murmurs, gallops, or rubs. RESPIRATORY: Breath sounds equal bilaterally. No accessory muscle use. GASTROINTESTINAL: Abdomen soft, non-tender, nondistended. NEURO: AAO X 3. Coordination with finger to nose touch was mildly off but patient was able to complete task. Unable to assess gait by myself due to increase risk of falls. PT is following. Strength and sensation is grossly intact. Medications and IVs Current Medications Sodium Chloride (NS 1000 ml Inj) 1,000 ml @ 125 mls/hr Q8H IV Last administered on 11/08/16 10:15; Start 11/08/16 at 10:15; Stop 11/08/16 at 15:49 ; Status DC Ondansetron HCl (Zofran Inj) 4 mg Q6H PRN IV NAUSEA OR VOMITING; Start at 15:45; Stop 11/08/16 at 15:50; Status DC Acetaminophen (Tylenol) 650 mg Q4H PRN PO Temp>101F, Headache Last administered on 11/08/16 19:28; Start 11/08/16 at 15:45 Sodium Chloride (NS Flush) 2 ml BID IV FLUSH Last administered on 11/09/16 20: 48; Start 11/08/16 at 21:00 Sodium Chloride (NS Flush) 2 ml UNSCH PRN IVF FLUSH AFTER USING IV ACCESS; Start 11/08/16 at 15:45 Labetalol HCl (Trandate Inj) 20 mg Q15M PRN IV PUSH sbp > 160; Start 11/08/16 at 15:45 Hydralazine HCl (Apresoline Inj) 10 mg Q30M PRN IV PUSH sbp > 160 Last administered on 11/09/16t 00:15; Start 11/08/16 at 15:45 Magnesium Oxide 800 mg 800 mg UNSCH PRN PO For Magnesium 1.2 - 1.6 mg/dL; Start 11/08/16 at 15:45; Stop 11/10/16 at 08:17; Status DC Magnesium Sulfate 4 gm/Sodium Chloride 100 ml @ 50 mls/hr UNSCH PRN IV For Magnesium 0.9 - 1.1 mg/dL; Start 11/08/16 at 15:45; Stop 11/10/16 at 08:17; Status DC Magnesium Sulfate 2 gm/Sodium Chloride 100 ml @ 50 mls/hr UNSCH PRN IV For Magnesium 1.2 - 1.6 mg/dL; Start 11/08/16 at 15:45; Stop 11/10/16 at 08:17; Status DC Potassium Chloride 100 ml @ 50 mls/hr Q2H PRN IV For Potassium 2.8 - 3.2 mEq/L ; Start 11/08/16 at 15:45; Stop 11/10/16 at 08:17; Status DC Potassium Chloride 100 ml @ 50 mls/hr Q2H PRN IV For Potassium 3.3 - 3.5 mEq/L ; Start 11/08/16 at 15:45; Stop 11/10/16 at 08:17; Status DC Potassium Chloride 100 ml @ 50 mls/hr Q2H PRN IV For Potassium 2.8 - 3.2 mEq/L ; Start 11/08/16 at 15:45; Stop 11/10/16 at 08:17; Status DC Potassium Chloride (KCl 40 Meq Premix Inj) 100 ml @ 25 mls/hr UNSCH PRN IV For Potassium 3.3 - 3.5 mEq/L; Start 11/08/16 at 15:45; Stop 11/10/16 at 08:17; Status DC Potassium Phosphate (K-Phos) 2,000 mg Q4H PRN PO For Phosphorus < 2.5 mg/dL; Start 11/08/16 at 15:45; Stop 11/10/16 at 08:17; Status DC Potassium Phosphate 2000 mg 2,000 mg UNSCH PRN PO/TUBE SEE LABEL COMMENTS; Start 11/08/16 at 15:45; Stop 11/10/16 at 08:17; Status DC Potassium Phosphate 30 mmol/ Sodium Chloride 260 ml @ 42 mls/hr UNSCH PRN IV SEE LABEL COMMENTS; Start 11/08/16 at 15:45; Stop 11/10/16 at 08:17; Status DC Sodium Phosphate/ Sodium Chloride (Sodium Phosphate Inj/NS 250 ml Inj) 250 ml @ 42 mls/hr UNSCH PRN IV For Phosphorus < 2.5 mg/dL; Start 11/08/16 at 15:45; Stop 11/10/16 at 08:17; Status DC Dextrose (D50w (Vial) Inj) 25 ml UNSCH PRN IV PUSH HYPOGLYCEMIA-SEE COMMENTS; Start 11/08/16 at 15:45 Insulin Human Regular 1 1 ACHS AND 3AM SQ ; Start 11/08/16 at 16:00 Sodium Chloride (NS 1000 ml Inj) 1,000 ml @ 84 mls/hr [id number] IV Last administered on 11/09/16 04:30; Start 11/08/16 at 15:33; Stop 11/09/16 at 16:08 ; Status DC Famotidine (Pepcid) 20 mg Q12HR PO Last administered on 11/11/16 08:39; Start 11/08/16 at 21:00 Ondansetron HCl (Zofran Inj) 4 mg Q6H PRN IV NAUSEA OR VOMITING; Start at 15:45 Albuterol/ Ipratropium (Duoneb Neb) 1 ampule Q2HR NEB PRN INH WHEEZING; Start 11/08/16 at 15:45 Miscellaneous Information 1 [id number] XX Last administered on 11/08/16 15:45; Start 11/08/16 at 15:45 Chlorhexidine Gluconate (Chlorhexidine 2% Cloth) 3 pack Taper DAILY@04 TOP Last administered on 11/09/16 04:00; Start 11/09/16 at 04:00; Stop 11/05/17 at 03:59 Chlorhexidine Gluconate (Chlorhexidine 2% Cloth) 3 pack UNSCH PRN TOP HYGIENIC CARE; Start 11/08/16 at 15:45 Senna/Docusate Sodium (Rekha-Colace) 1 tab BID PO Last administered on 08:40; Start 11/08/16 at 21:00 Acetaminophen/ Hydrocodone Bitart ([place] 5-325 Mg) 1 tab Q6H PRN PO headache, severe Last administered on 11/11/16 03:59; Start 11/08/16 at 21:15 Pneumococcal Polyvalent Vaccine (Pneumovax-23 Inj) 25 mcg ONCE ONCE IM Last administered on 11/09/16 09:38; Start 11/09/16 at 10:00; Stop 11/09/16 at 10:01 ; Status DC Amlodipine Besylate (Norvasc) 10 mg DAILY PO Last administered on 11/11/16 08: 40; Start 11/09/16 at 09:00 Lisinopril (Prinivil) 10 mg DAILY PO Last administered on 11/11/16 08:40; Start 11/09/16 at 09:00; Stop 11/11/16 at 09:11; Status DC Melatonin (Melatonin) 5 mg HS PO Last administered on 11/10/16 20:14; Start at 21:00 Olanzapine (ZyPREXA ZYDIS ODT) 5 mg Q24H PRN PO if not asleep by 2300; Start at 23:00 Sodium Chloride ([place]) 2 spray Q4H PRN EACH NARE NASAL CONGESTION; Start 11/10/16 at 09:30 Clonidine (Catapres) 0.1 mg Q8HR PRN PO SYS BP GREATER THAN 150 MMHG; Start at 09:30 Lisinopril (Prinivil) 20 mg DAILY PO ; Start 11/12/16 at 09:00 Lisinopril (Prinivil) 10 mg ONCE ONCE PO ; Start 11/11/16 at 10:00; Stop at 10:01; Status DC A/P Assessment and Plan Assessment: 81yM s/p recent ischemic stroke now with right Thalamic IPH with only neurologic presentation being frequent falls. Right thalamic IPH -Improving the patient continues to be unsteady on his feet. - neuro checks to q4h. - CT scan repeated on 11/09/2016 showed stable intracranial bleed or mildly decreased. - sbp < 150 - regular diet as tolerated. - neurosurgery consulted and signed off. Hypertension -on amlodipine 10mg daily and lisinopril. Lisinopril increased today to 20 mg by mouth daily. -Will put on clonidine when necessary. History of ischemic stroke -Patient on Plavix but was held due to intracranial hemorrhage. Neurosurgeon to determine if patient can restart Plavix. Insomnia -on melatonin qHS for sleep -on zyprexa 2.5mg nightly if not asleep by 11pm SCDs. PPI Discharge Planning Patient is medically stable for discharged to SNF. Dealt with case management. Prabha Montemayor MD Nov 11, 2016 10:18
[2016-11-11 12:00] VITALS: BP 131/87; PULSE 116; RESP 20; TEMP 98.7; O2SAT 97
[2016-11-11 16:00] VITALS: BP 127/97; PULSE 120; RESP 20; TEMP 97.4; O2SAT 98
[2016-11-11] MEDS: ACETAMINOPHEN 325 MG TAB PO PRN (18:24)
[2016-11-11 20:00] VITALS: BP 107/66; PULSE 108; RESP 20; TEMP 98.8; O2SAT 96
[2016-11-11] MEDS: MELATONIN 5 MG TAB PO SCH (20:24)
[2016-11-12] VITALS: BP 133/88; PULSE 106; RESP 20; TEMP 98.7; O2SAT 99
[2016-11-12] MEDS: ACETAMINOPHEN/HYDROcodone 325 MG/5 MG TAB PO PRN (01:44)
[2016-11-12] MEDS: INSULIN NovoLIN REGULAR SUPPLEMENTAL SCALE SQ SCH ×3 (01:45→11:00)
[2016-11-12] MEDS: CHLORHEXIDINE GLUCONATE 2 % 1 PACK (2 CLOTHS) TOP SCH (01:52)
[2016-11-12 04:00] VITALS: BP 130/80; PULSE 102; RESP 20; TEMP 98.1; O2SAT 96
[2016-11-12 08:00] VITALS: BP 148/90; PULSE 104; RESP 16; TEMP 98; O2SAT 97
[2016-11-12] MEDS: FAMOTIDINE 20 MG TAB PO SCH (08:24)
[2016-11-12] MEDS: DOCUSATE SODIUM 50 MG/SENNA 8.6 MG TAB PO SCH (08:25)
[2016-11-12] MEDS: SODIUM CHLORIDE 0.9% FLUSH 10 ML FLUSH IV FLUSH SCH (08:26)
[2016-11-12] MEDS ORDERED: LISINOPRIL 20 MG TAB PO SCH (09:00)
[2016-11-12 09:39] LABS: HEMATOCRIT 44.9 % (39.0-51.0); MEAN CELL VOLUME 92.2 FL (80.0-100.0); MEAN CORPUSCULAR HEMOGLOBIN 31.1 PG (27.0-34.0); MEAN CORPUSCULAR HGB CONC 33.7 % (32.0-36.0); PLATELET COUNT 193 TH/MM3 (150-450); RED BLOOD COUNT 4.87 MIL/MM3 (4.50-5.90); RED CELL DISTRIBUTION WIDTH 12.5 % (11.6-17.2); REVIEW FLAG FINAL; WHITE BLOOD COUNT 3.6 TH/MM3 (4.0-11.0)
[2016-11-12] MEDS ORDERED: SENN1TAB PO (10:10)
[2016-11-12] MEDS ORDERED: AMLO10 PO (10:10)
[2016-11-12] MEDS ORDERED: LISI-515 PO (10:10)
--- NOTE | 2016-11-12 10:11 | HHI.DS ---
Discharge Summary Admission Date Nov 08, 2016 at 15:30 Discharge Date: Nov 12, 2016 Admitting Diagnosis acute hemorrhagic CVA (1) Hemorrhagic cerebrovascular accident (CVA) ICD Code: I61.9 Diagnosis: Principal (2) HLD (hyperlipidemia) ICD Code: E78.5 Diagnosis: Secondary (3) HTN (hypertension) ICD Code: I10 Diagnosis: Secondary Procedures See hospital course. Brief History - From Admission This is an 81-year-old man with a history of a recent prior ischemic stroke and coronary artery disease status post PCI 5 years ago who presents with frequent falling over the past few days. He per report his fallen twice, without injury , but he is not used to falling. He feels like he is dizzy and off balance. He has not passed out or had any presyncopal symptoms. He denies any palpitations. He denies chest pain, shortness of breath, fever, chills, fatigue. In the emergency department he was found to have a right basal ganglia intraparenchymal hemorrhage. He is somewhat of a poor historian and is difficult to get additional information from him. The remainder of the review of systems and history of present illness is negative. CBC/BMP: 11/12/16 0910 11/11/16 0908 Significant Findings Laboratory Tests Test 11/10/16 11/11/16 11/12/16 06:12 09:08 09:10 Red Blood Count 4.18 MIL/MM3 4.31 MIL/MM3 (4.50-5.90) (4.50-5.90) Hematocrit 38.3 % 38.9 % (39.0-51.0) (39.0-51.0) Sodium Level 132 MEQ/L 130 MEQ/L (136-145) (136-145) Carbon Dioxide Level 20.9 MEQ/L (21.0-32.0) Creatinine 0.50 MG/DL (0.60-1.30) Potassium Level 3.4 MEQ/L (3.5-5.1) Chloride Level 96 MEQ/L (98-107) White Blood Count 3.6 TH/MM3 (4.0-11.0) Imaging Last Impressions Head CT 11/09/16 0800 Signed Impressions: Service Date/Time: Wednesday, November 09, 2016 04:47 - CONCLUSION: 1. 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 2. Small amount of intraventricular hemorrhage. 3. Chronic ischemic small vessel vasculopathy. King Johnson MD Pelvis X-Ray 11/08/16 1011 Signed Impressions: Service Date/Time: Tuesday, November 08, 2016 10:38 - CONCLUSION: 1. No acute fracture. Joe Pritchard MD Lumbar Spine CT 11/08/16 1011 Signed Impressions: Service Date/Time: Tuesday, November 08, 2016 10:42 - CONCLUSION: 1. Remote fracture of S1-S2 with bony fusion and residual grade 4 anterolisthesis. 2. Remote fusion L3-4. 3. 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 4. Mild superior endplate compression deformity of L1 which appears chronic. No definite acute fracture. Bones are osteopenic. There is fusion across the posterior elements in the lower lumbar spine. Joe Pritchard MD Chest X-Ray 11/08/16 1006 Signed Impressions: Service Date/Time: Tuesday, November 08, 2016 10:43 - CONCLUSION: 1. No acute findings. Linear scarring or atelectasis right midlung. Joe Pritchard MD PE at Discharge GENERAL: in NAD EYES: No scleral icterus. No injection or drainage. PERRLA NECK: Supple, trachea midline. No JVD or lymphadenopathy. CARDIOVASCULAR: Regular rate and rhythm without murmurs, gallops, or rubs. RESPIRATORY: Breath sounds equal bilaterally. No accessory muscle use. GASTROINTESTINAL: Abdomen soft, non-tender, nondistended. NEURO: AAO X 3. Sensation and motor grossly intact. Pt update on day of discharge Follow-up for intracranial bleed Patient has no complaints. He stated that he is very anxious to get back home. He continues to have a unsteady gait. Deny any other focal neurological deficits. Denied any visual changes or headaches. Rehab physician is also at the bedside during interview. Hospital Course 81y M s/p recent ischemic stroke who presented with frequent falls and unsteady gait now with right Thalamic hemorrhage with only neurologic presentation being frequent falls. Right thalamic hemorrhage -Patient's symptoms was an unsteady gait and frequent falls. He was evaluated by PT and OT who recommended inpatient rehabilitation. Although his gait has improved over his hospital course he continued to have a unsteady gait. -Neurosurgeon was consulted and recommend to hold Plavix. Multiple CT scans were obtained in which the intracranial bleed was stable or had mildly decreased. - Treatment also include blood pressure control with a systolic blood pressure less than 150. Patient was put on amlodipine and lisinopril. Hypertension -See treatment as above. History of ischemic stroke -Patient on Plavix but was held due to intracranial hemorrhage and per recommendations of the neurosurgeon. Neurosurgeon to determine if patient can restart Plavix. Insomnia -Patient was put on on melatonin qHS for sleep and zyprexa 2.5mg nightly if not asleep by 11pm Pt Condition on Discharge: Good Discharge Disposition: Rehab Inpatient Discharge Time: <= 30 minutes Discharge Instructions DIET: Follow Instructions for: Heart Healthy Diet Activities you can perform: Regular-No Restrictions Follow up Referrals: SNF/[facility]/ - Next Day New Medications: Amlodipine (Norvasc) 10 Mg Tab 10 MG PO DAILY goal SBP<150 hypertension #30 Ref 0 TAB Hydrocodone-Acetaminophen (Hydrocodone-Acetaminophen) 5-325 mg Tab 1 TAB PO Q6H PRN headache, severe #10 Ref 0 TAB Lisinopril (Lisinopril) 20 Mg Tab 20 MG PO DAILY SBP<150 hypertension #30 Ref 0 TAB Sennosides-Docusate Sodium (Senna Plus 8.6-50 mg) 1 Tab Tab 1 TAB PO BID constipation #14 Ref 0 TAB Discontinued Medications: Clopidogrel (Plavix) 75 Mg Tab 75 MG PO DAILY Blood Clot Prevention #30 Ref 0 TAB Prabha Montemayor MD Nov 12, 2016 10:10
[2016-11-12] MEDS ORDERED: HYDR-3516 PO (10:13)
[2016-11-12 10:25] LABS: BICARBONATE 26.9 MEQ/L (21.0-32.0)
[2016-11-12 10:38] LABS: POTASSIUM 3.9 MEQ/L (3.5-5.1)
[2016-11-12] MEDS: ACETAMINOPHEN 325 MG TAB PO PRN (12:19)
== END 2016-11-12 12:42 | DRG 66 ==
LOC: NEPE 09:34 → NEDA 15:30 → N03B 16:49 → N05B 11-09 17:00
PROVIDERS: ADMIT Family Medicine; ATTEND Family Medicine
DX: I61.8 Other nontraumatic intracerebral hemorrhage (principal); D69.6 Thrombocytopenia, unspecified; E11.9 Type 2 diabetes mellitus without complications; I10 Essential (primary) hypertension; N40.0 Benign prostatic hyperplasia without lower urinary tract symptoms; K59.00 Constipation, unspecified; M51.36 Other intervertebral disc degeneration, lumbar region; E78.5 Hyperlipidemia, unspecified; I25.10 Atherosclerotic heart disease of native coronary artery without angina pectoris; G47.00 Insomnia, unspecified; Z95.5 Presence of coronary angioplasty implant and graft; Z79.02 Long term (current) use of antithrombotics/antiplatelets
CPT/HCPCS: 70450; 71010; 72131; 72170; 80048; 80053; 81001; 82948; 85025; 85027; 85610; 85730; 90732; 93005; 94150; 94640; 94667; 94668; 96360; 96361; J0360; J7030

== ENCOUNTER 2016-11-28 01:34 | Inpatient (IN) | payer MEDICARE ==
[~2016-11-28] VITALS: Ht 170.2 cm; Wt 66.3 kg
[2016-11-28] VITALS (11 sets, daily range): BP systolic 126–156; BP diastolic 74–88; PULSE 67–117; RESP 14–20; TEMP 97.4–98.3; O2SAT 95–99
[~2016-11-28 01:34] MED LIST changes: +ACET1TAB86 PO; +AMLO10 PO; -ASPI325T PO; -ATOR10 PO; -CARB200T16 PO; -DOXA1 PO; +GNP5TAB6 PO; +HYDR-3516 PO; +LIDO5DIS5 T-DERMAL; -LISI-360 PO; +METO25TA3 PO; +PANT20 PO; +SENN1TAB PO
[2016-11-28] MEDS ORDERED: ALUMINUM/MAGNESIUM/SIMETH 30 ML CUP PO STA (02:40)
[2016-11-28] MEDS ORDERED: FAMOTIDINE 20 MG TAB PO ONE (02:45)
[2016-11-28] MEDS ORDERED: SODIUM CHLORIDE 0.9% FLUSH 10 ML FLUSH IVF PRN (02:45)
[2016-11-28 02:57] LABS: AUTOMATED NEUTROPHIL # 6.2 TH/MM3 (1.8-7.7); BASOPHIL % 0.4 % (0.0-2.0); EOSINOPHIL % 0.4 % (0.0-4.0); HEMATOCRIT 37.8 % (39.0-51.0); HEMO FLAGS DIFF FINAL; LYMPH % 5.7 % (9.0-44.0); LYMPHOCYTE # 0.4 TH/MM3 (1.0-4.8); MEAN CELL VOLUME 89.7 FL (80.0-100.0); MEAN CORPUSCULAR HEMOGLOBIN 31.6 PG (27.0-34.0); MEAN CORPUSCULAR HGB CONC 35.2 % (32.0-36.0); MONO % 6.5 % (0.0-8.0); PLATELET COUNT 163 TH/MM3 (150-450); RED BLOOD COUNT 4.21 MIL/MM3 (4.50-5.90); RED CELL DISTRIBUTION WIDTH 12.2 % (11.6-17.2); WHITE BLOOD COUNT 7.2 TH/MM3 (4.0-11.0)
[2016-11-28 03:13] LABS: ALT (GPT) 24 U/L (12-78); ANION GAP 8 MEQ/L (5-15); AST (GOT) 26 U/L (15-37); BICARBONATE 27.6 MEQ/L (21.0-32.0); BLOOD UREA NITROGEN 22 MG/DL (7-18); CHLORIDE 100 MEQ/L (98-107); GLOMERULAR FILTRATION RATE 75 ML/MIN (>89); MAGNESIUM 1.8 MG/DL (1.5-2.5); POTASSIUM 3.8 MEQ/L (3.5-5.1); SODIUM (NA) 136 MEQ/L (136-145)
[2016-11-28 03:17] LABS: ALKALINE PHOSPHATASE 111 U/L (45-117); TOTAL BILIRUBIN ADULT 0.3 MG/DL (0.2-1.0)
--- NOTE | 2016-11-28 03:34 | PD ---
HPI Chief Complaint: GI Complaint Time Seen by Provider: 02:36 Travel History International Travel<30 days: No Contact w/Intl Traveler<30days: No Traveled to known affect area: No History of Present Illness HPI An 81-year-old man who presents to the emergency department complaining of heartburn is been ongoing since this morning. No nausea vomiting. No chest pain. No shortness of breath. He states he's had similar problems intermittently before. He does have a history of CAD but states this feels different. He was recently admitted to the hospital for this for hemorrhagic CVA is limited home for a little bit. He states he normally takes some over-the -counter medicine which helps with this but he did not take any tonight. His neighbor brought him in for evaluation. History Past Medical History Narrative Medical CAD Hypertension BPH Recent hemorrhagic CVA Social History Alcohol Use: No Tobacco Use: No Allergies-Medications (Allergen,Severity, Reaction): Coded Allergies: No Known Allergies (Unverified , 07/09/11) Reported Meds & Prescriptions Reported Meds & Active Scripts Active Protonix (Pantoprazole Sodium) 20 Mg Tab 20 Mg PO DAILY 30 Days Metoprolol Tartrate 25 Mg Tab 12.5 Mg PO Q12HR 30 Days Gnp Melatonin Maximum Str (Melatonin) 5 Mg Tab 5 Mg PO HS 30 Days Lidoderm (Lidocaine) 5 % Adh..patch 1 Patch T-DERMAL DAILY Hydrocodone-Acetaminophen 5-325 mg Tab 1 Tab PO Q4H PRN Eq Acetaminophen (Acetaminophen) 325 Mg Tab 650 Mg PO Q4H PRN Senna Plus 8.6-50 mg (Sennosides-Docusate Sodium) 1 Tab Tab 1 Tab PO BID Norvasc (Amlodipine Besylate) 10 Mg Tab 10 Mg PO DAILY goal SBP<150 Review of Systems Except as stated in HPI: all other systems reviewed are Neg Physical Exam Narrative GENERAL: Well-appearing 81 year-old woman, no acute distress. SKIN: Focused skin assessment warm/dry. HEAD: Atraumatic. Normocephalic. CARDIOVASCULAR: Regular rate and rhythm. No murmur appreciated. RESPIRATORY: No accessory muscle use. Clear to auscultation. Breath sounds equal bilaterally. GASTROINTESTINAL: Abdomen soft, non-tender, nondistended. Hepatic and splenic margins not palpable. MUSCULOSKELETAL: No obvious deformities. No edema. NEUROLOGICAL: Awake and alert. No obvious cranial nerve deficits. Motor grossly within normal limits. Normal speech. Data Data Last Documented VS Vital Signs Date Time Temp Pulse Resp B/P Pulse Ox O2 Delivery O2 Flow Rate FiO2 11/28/16 03:45 94 14 152/78 98 Room Air 11/28/16 01:36 98.3 Orders Electrocardiogram (11/28/16 02:40) Complete Blood Count With Diff (11/28/16 02:40) Comprehensive Metabolic Panel (11/28/16 02:40) Magnesium (Mg) (11/28/16 02:40) Troponin I (11/28/16 02:40) Lipase (11/28/16 02:40) Chest, Single Ap (11/28/16 02:40) Ecg Monitoring (11/28/16 02:40) Iv Access Insert/Monitor (11/28/16 02:40) Oximetry (11/28/16 02:40) Oxygen Administration (11/28/16 02:40) Sodium Chloride 0.9% Flush (Ns Flush) (11/28/16 02:45) Al-Mag Hy-Si 40-40-4 Mg/Ml Liq (Mag-Al P (11/28/16 02:40) Famotidine (Pepcid) (11/28/16 02:45) Labs Laboratory Tests Test 11/28/16 02:48 White Blood Count 7.2 TH/MM3 Red Blood Count 4.21 MIL/MM3 Hemoglobin 13.3 GM/DL Hematocrit 37.8 % Mean Corpuscular Volume 89.7 FL Mean Corpuscular Hemoglobin 31.6 PG Mean Corpuscular Hemoglobin 35.2 % Concent Red Cell Distribution Width 12.2 % Platelet Count 163 TH/MM3 Mean Platelet Volume 7.9 FL Neutrophils (%) (Auto) 87.0 % Lymphocytes (%) (Auto) 5.7 % Monocytes (%) (Auto) 6.5 % Eosinophils (%) (Auto) 0.4 % Basophils (%) (Auto) 0.4 % Neutrophils # (Auto) 6.2 TH/MM3 Lymphocytes # (Auto) 0.4 TH/MM3 Monocytes # (Auto) 0.5 TH/MM3 Eosinophils # (Auto) 0.0 TH/MM3 Basophils # (Auto) 0.0 TH/MM3 CBC Comment DIFF FINAL Differential Comment Sodium Level 136 MEQ/L Potassium Level 3.8 MEQ/L Chloride Level 100 MEQ/L Carbon Dioxide Level 27.6 MEQ/L Anion Gap 8 MEQ/L Blood Urea Nitrogen 22 MG/DL Creatinine 0.96 MG/DL Estimat Glomerular Filtration 75 ML/MIN Rate Random Glucose 119 MG/DL Calcium Level 8.8 MG/DL Magnesium Level 1.8 MG/DL Total Bilirubin 0.3 MG/DL Aspartate Amino Transf 26 U/L (AST/SGOT) Alanine Aminotransferase 24 U/L (ALT/SGPT) Alkaline Phosphatase 111 U/L Troponin I 0.09 NG/ML Total Protein 7.6 GM/DL Albumin 3.6 GM/DL Lipase 291 U/L [facility] Medical Decision Making Medical Screen Exam Complete: Yes Emergency Medical Condition: Yes Interpretation(s) My review of EKG: Sinus tachycardia rate of 104, normal axis, normal intervals, right bundle branch block, inferior Q waves could suggest a mild, no definite evidence of acute ischemia. Compared to previous EKG fromNovember 12, there is really no significant change. LABS: CBC is unremarkable. CMP is unremarkable. Troponin 0.09 Lipase normal My review of chest x-ray: [place] little bit enlarged, elevated hemidiaphragms bilaterally, no definite acute cardiopulmonary disease. Differential Diagnosis Gastritis, pancreatitis, hepatobiliary disease, ACS, other Narrative Course Medical decision making Needs your may present similar to her which was sounds like really heartburn. He has some risk factors including previous CAD. He recent hemorrhagic stroke. He just returned home a couple days ago. His initial troponin is minimally elevated. This could be related to his previous hemorrhagic CVA. We'll plan on admitting her for observation to a cardiac enzymes and repeat evaluation. Diagnosis Primary Impression: Chest pain Additional Impression: Elevated troponin Cayden Luna MD Nov 28, 2016 03:34
--- NOTE | 2016-11-28 03:53 | RADRPT ---
EXAM DATE/TIME: 11/28/2016 02:59 [facility] COMPARISON: CHEST SINGLE AP, November 08, 2016, 10:43. INDICATIONS : Chest pain. MEDICAL HISTORY : None. SURGICAL HISTORY : None. ENCOUNTER: Initial ACUITY: 1 day PAIN SCORE: 6/10 LOCATION: Bilateral chest FINDINGS: Single AP view of the chest. Lung volumes are low. Lungs are grossly clear. No evidence of pleural ef fusion or pneumothorax. Cardiomediastinal silhouette unchanged. High riding humeral heads indicating rotator cuff insufficiency. CONCLUSION: Low lung volumes. No acute cardiopulmonary disease identified Seb Aguilar MD on November 28, 2016 at 3:51 Board Certified Radiologist. This report was verified electronically.
[2016-11-28] MEDS ORDERED: NALOXONE HCL 0.4 MG/ML AMP IV PRN ×2 (04:00→15:30)
[2016-11-28] MEDS ORDERED: SODIUM CHLORIDE 0.9% FLUSH 10 ML FLUSH IV FLUSH PRN (04:00)
--- NOTE | 2016-11-28 05:06 | HHI.HP ---
HPI [facility] Primary Care Physician Dr. Minh Sow DO Admission Diagnosis chest pain, rule out ACS Diagnoses: (1) NSTEMI (non-ST elevated myocardial infarction) Chief Complaint: chest pain Travel History International Travel<30 Days: No Contact w/Intl Traveler <30 Da: No Traveled to Known Affected Are: No History of Present Illness Written by Tiffany Gonzalez, acting as scribe for Dr. Carbajal on 11/28/16 at 05:10. The patient recently had a right thalmic hemorrhage on 11/08 and was discharged from [facility] to home on 11/26/16 off Plavix (was on Plavix for stent placed 5 years ago?) Patient complains of "burning" chest pain. Reports pain is similar to prior myocardial infarction. Patient states his chest started burning and hurting this morning; states that he was taking a couple of pills when the pain started - symptoms started at 7 a.m. The patient states he was diaphoretic and dizzy with chest pain. Denies shortness of breath, denies radiating pain, denies nausea, denies syncope. Symptom duration: constant, nothing made the pain better upon my initial interview. Pain not exacerbated with a deep breath Denies fever, nausea, vomiting, diarrhea, dysuria, hematuria, black or red stool , syncope, or recent fall. Gave nitroglycerin 0.4 mg sublingual during visit; states his chest pain resolved following administration of NTG. The patient has some memory impairment which limits history taking. Automation Control Technician is in [facility] it is two young doctors that work together but cannot recall name. He doesn't recall the name of his PCP either. His PCP is Minh oSw DO - per rehab discharge summary (has appt 12/04). 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 Past Surgical History back surgery cardiac catheterization with stent placement . Reported Medications Reported Meds & Active Scripts Active Protonix (Pantoprazole Sodium) 20 Mg Tab 20 Mg PO DAILY 30 Days Metoprolol Tartrate 25 Mg Tab 12.5 Mg PO Q12HR 30 Days Gnp Melatonin Maximum Str (Melatonin) 5 Mg Tab 5 Mg PO HS 30 Days Lidoderm (Lidocaine) 5 % Adh..patch 1 Patch T-DERMAL DAILY Hydrocodone-Acetaminophen 5-325 mg Tab 1 Tab PO Q4H PRN Eq Acetaminophen (Acetaminophen) 325 Mg Tab 650 Mg PO Q4H PRN Senna Plus 8.6-50 mg (Sennosides-Docusate Sodium) 1 Tab Tab 1 Tab PO BID Norvasc (Amlodipine Besylate) 10 Mg Tab 10 Mg PO DAILY goal SBP<150 . Allergies: Coded Allergies: No Known Allergies (Unverified , 07/09/11) Active Ordered Medications Current Medications Sodium Chloride (NS Flush) 2 ml UNSCH PRN IVF FLUSH AFTER USING IV ACCESS; Start 11/28/16 at 02:45; Stop 11/28/16 at 04:04; Status DC Al Hydrox/Mg Hydrox/Simethicone (Mag-Al Plus Susp Liq) 30 ml ONCE STAT PO Last administered on 11/28/16 03:36; Start 11/28/16 at 02:40; Stop 11/28/16 at 02:41; Status DC Famotidine (Pepcid) 20 mg ONCE ONCE PO Last administered on 11/28/16 03:36; Start 11/28/16 at 02:45; Stop 11/28/16 at 02:46; Status DC Sodium Chloride (NS Flush) 2 ml UNSCH PRN IV FLUSH FLUSH AFTER USING IV ACCESS ; Start 11/28/16 at 04:00 Sodium Chloride (NS Flush) 2 ml BID IV FLUSH ; Start 11/28/16 at 09:00 Naloxone HCl (Narcan Inj) 0.4 mg UNSCH PRN IV SEE LABEL COMMENTS; Start at 04:00 . Family History One brother from lung cancer One brother from heart problems . Social History Tobacco: quit smoking 40 years ago Alcohol: no longer drinks alcohol; never a heavy drinker Illicit Drugs: denies Lives alone with his dog; has friends and neighbors who visit Does not drive . Physical Exam Vital Signs Vital Signs Date Time Temp Pulse Resp B/P Pulse Ox O2 Delivery O2 Flow Rate FiO2 11/28/16 03:45 94 14 152/78 98 Room Air 11/28/16 01:36 98.3 117 16 156/82 96 Room Air Physical Exam GENERAL: This is a well-nourished, well-developed patient, in no apparent distress. SKIN: No rashes, ecchymoses or lesions. Cool and dry. HEAD: Atraumatic. Normocephalic. EYES: No scleral icterus. No injection or drainage. ENT: Nose without bleeding, purulent drainage. NECK: Trachea midline. No JVD or lymphadenopathy. CARDIOVASCULAR: Regular rate and rhythm without murmurs, gallops, or rubs. RESPIRATORY: Clear to auscultation. Breath sounds equal bilaterally. No wheezes , rales, or rhonchi. GASTROINTESTINAL: Abdomen soft, non-tender, nondistended. No guarding. MUSCULOSKELETAL: Extremities without clubbing, cyanosis, or edema. No calf tenderness. NEUROLOGICAL: Awake and alert but with memory impairment. Motor and sensory grossly within normal limits. Normal speech. . Laboratory Laboratory Tests Test 11/28/16 02:48 White Blood Count 7.2 Red Blood Count 4.21 Hemoglobin 13.3 Hematocrit 37.8 Mean Corpuscular Volume 89.7 Mean Corpuscular Hemoglobin 31.6 Mean Corpuscular Hemoglobin 35.2 Concent Red Cell Distribution Width 12.2 Platelet Count 163 Mean Platelet Volume 7.9 Neutrophils (%) (Auto) 87.0 Lymphocytes (%) (Auto) 5.7 Monocytes (%) (Auto) 6.5 Eosinophils (%) (Auto) 0.4 Basophils (%) (Auto) 0.4 Neutrophils # (Auto) 6.2 Lymphocytes # (Auto) 0.4 Monocytes # (Auto) 0.5 Eosinophils # (Auto) 0.0 Basophils # (Auto) 0.0 CBC Comment DIFF FINAL Differential Comment Sodium Level 136 Potassium Level 3.8 Chloride Level 100 Carbon Dioxide Level 27.6 Anion Gap 8 Blood Urea Nitrogen 22 Creatinine 0.96 Estimat Glomerular Filtration 75 Rate Random Glucose 119 Calcium Level 8.8 Magnesium Level 1.8 Total Bilirubin 0.3 Aspartate Amino Transf 26 (AST/SGOT) Alanine Aminotransferase 24 (ALT/SGPT) Alkaline Phosphatase 111 Troponin I 0.09 Total Protein 7.6 Albumin 3.6 Lipase 291 Result Diagram: 11/28/16 0248 11/28/16 0248 Imaging Last Impressions Chest X-Ray 11/28/16239 Signed Impressions: Service Date/Time: November 02:59 - CONCLUSION: Low lung volumes. No acute cardiopulmonary disease identified Seb Aguilar MD . Assessment and Plan Problem List: (1) NSTEMI (non-ST elevated myocardial infarction) ICD Code: I21.4 Status: Acute (2) Hemorrhagic cerebrovascular accident (CVA) ICD Code: I61.9 Status: Acute Assessment and Plan NSTEMI - he's been off Plavix since right Thalmic hemorrhage 11/08 - Initial Troponin I - 0.09 - 12 lead EKG personally reviewed - shows inferior lead q waves suggestive of old PA, right bundle branch block noted - no acute ischemic changes noted - Serial EKGs and cardiac enzymes to trend - continuous cardiac telemetry to monitor for arrhythmias - Nitroglycerin 0.4 mg SL q5 mins prn chest pain x 3 - Contact patient's PCP - Dr. Minh Sow to find out who customer marketing manager is when office opens. We should consult cardiology - patient reports he sees an outpatient customer marketing manager. Right Thalmic Hemorrhage 11/08/16 - consult neurology or neurosurgery if anticoagulation is being considered DVT prophylaxis - SCDs/TEDs Discussed Condition With ER physician, RN, and patient . Tiffany Gonzalez Nov 28, 2016 05:06
[2016-11-28] MEDS ORDERED: NITROGLYCERIN 0.4 MG SL 25 TABS/BTL SL PRN (05:15)
[2016-11-28] MEDS ORDERED: PANTOPRAZOLE SODIUM 40 MG VIAL IV PUSH ONE (06:30)
--- NOTE | 2016-11-28 08:31 | EKG ---
Date Performed: 11/28/2016 Time Performed: 02:49:20 PTAGE: 81 years EKG: SINUS TACHYCARDIA RIGHT BUNDLE BRANCH BLOCK POSSIBLE INFERIOR MYOCARDIAL INFARCTION ABNORMA L ECG PREVIOUS TRACING : 11/08/2016 11.12 No significant change from previous tracing noted. DOCTOR: Wolf Church Interpretating Date/Time 11/28/2016 08:29:55
[2016-11-28] MEDS: SODIUM CHLORIDE 0.9% FLUSH 10 ML FLUSH IV FLUSH SCH ×2 (08:58→19:38)
--- NOTE | 2016-11-28 11:22 | HHI.PR ---
Subjective Remarks Follow up chest pain. Patient seen and examined in room. Lying in bed comfortably, in no apparent distress. Patient states that pain is completely relieved. States he "feels like he could walk home he feels so good". Denies any recent illness, fever, chills, cough, headache, dizziness, shortness of breath, ab pain, n/v. Tolerating PO intake. Awaiting cardiology input regarding elevated troponins. Patient questions answered and spoke about medical treatment plan. Objective Vitals Vital Signs Date Time Temp Pulse Resp B/P Pulse Ox O2 Delivery O2 Flow Rate FiO2 11/28/16 09:06 77 18 130/79 11/28/16 08:45 95 18 134/82 96 Nasal Cannula 2 11/28/16 07:07 95 18 126/74 96 Room Air 11/28/16 05:39 112 14 145/88 99 Room Air 11/28/16 03:45 94 14 152/78 98 Room Air 11/28/16 01:36 98.3 117 16 156/82 96 Room Air Result Diagram: 11/28/1624711/28/16247 Imaging Last Impressions Chest X-Ray 11/28/16239 Signed Impressions: Service Date/Time: November 02:59 - CONCLUSION: Low lung volumes. No acute cardiopulmonary disease identified Seb Aguilar MD Objective Remarks GENERAL: Well-nourished, well-developed patient in NAD. SKIN: Warm and dry. No rash. HEENT: Normocephalic. Atraumatic. Pupils equal and round. No scleral icterus. No injection or drainage. No nasal bleeding or discharge. Mucous membranes pink and moist. NECK: Supple. Trachea midline. CARDIOVASCULAR: Regular rate and rhythm. S1, S2 noted. No murmur appreciated. RESPIRATORY: No accessory muscle use. Clear to auscultation. Breath sounds equal bilaterally. GASTROINTESTINAL: Abdomen soft, non-tender, nondistended. Normoactive bowel sounds x4. MUSCULOSKELETAL: No obvious deformities. Extremities without clubbing, cyanosis , or edema. NEUROLOGICAL: Awake and alert. No obvious cranial nerve deficits. Motor grossly within normal limits. 5/5 muscle strength in bilateral upper and lower extremities. Normal speech. PSYCHIATRIC: Appropriate mood and affect; insight and judgment normal. A/P Problem List: (1) NSTEMI (non-ST elevated myocardial infarction) ICD Code: I21.4 Status: Acute (2) Hemorrhagic cerebrovascular accident (CVA) ICD Code: I61.9 Status: Acute Assessment and Plan Mr. Carlisle is an 81-year-old male patient with a known medical history of ME x 5 years ago, CAD with stent placement, DM, HTN, COPD and history of CVA who presented to the ED this am with complaints of burning chest pain reported similar to his previous ME years ago. He did admit to associated diaphoresis and dizziness. The patient recently had a right Thalmic hemorrhage on 11/08 and was discharged from [facility] to home on 11/26/16 off Plavix (previously placed on this for stents 5 years ago). NSTEMI - Off Plavix since right Thalmic hemorrhage 11/08 - Initial Troponin I - 0.09 -- > 6.04. Total creatinine kinase 172. - 12 lead EKG reviewed showing inferior lead q waves suggestive of old ME, right bundle branch block noted with no acute ischemic changes noted. - Serial EKGs and cardiac enzymes to trend. - continuous cardiac telemetry to monitor for arrhythmias - Nitroglycerin 0.4 mg SL q5 mins prn chest pain x 3 - Contact patient's PCP - Dr. Minh Sow to find out who dressmaker or tailor is when office opens. We should consult cardiology - patient reports he sees an outpatient dressmaker or tailor. History of right Thalmic Hemorrhage on 11/08/16 - Patient currently asymptomatic. Denies any headache, lightheadedness or dizziness. Will follow clinically. - Will consult neurosurgery, needing clearance for cardiology to proceed with possible use of heparin or restarting of Plavix. Awaiting input. - Spoke with Dr. Alcocer, will proceed with intervention tomorrow am 11/29, if cleared by neurosurgery. GI Prophylaxis: Protonix DVT prophylaxis: SCDs/Christine Zurita Nov 28, 2016 11:21
--- NOTE | 2016-11-28 11:40 | EKG ---
Date Performed: 11/28/2016 Time Performed: 08:48:44 PTAGE: 81 years EKG: Sinus rhythm WITH SINUS ARRHYTHMIA RIGHT BUNDLE BRANCH BLOCK LEFT ANTERIOR FASCICULAR BLOCK ABNORMAL ECG PREVIOUS TRACING : 11/28/2016 02.49 No significant change from previous tracing noted. DOCTOR: Wolf Church Interpretating Date/Time 11/28/2016 11:39:13
--- NOTE | 2016-11-28 13:25 | MB ---
cc: YAMILE SWAIN DATE OF CONSULTATION 11/28/2016 INDICATION [id number] UT. HISTORY OF PRESENT ILLNESS This is an 81-year-old gentleman with a recent prior ischemic stroke who had a right thalamic spontaneous hemorrhage on Plavix. He presented back on November 08 and was hospitalized through the end of October and transferred over to what looks like rehab. He was seen by neurosurgery at that time and a conservative management approach was taken. He was of previously on Plavix with a prior history of coronary disease, but the Plavix was discontinued. The repeat CT scan showed no progression and actually some small regression. He now presents with an episode of substernal chest pain which came on spontaneously not an issue with any particular exertional activity. The initial troponin was negative. The second troponin came back at six. He is currently chest pain-free. Electrocardiogram did not show any significant ischemic changes. He had received sublingual nitroglycerin with relief of his symptoms. He states that he had a heart attack about five years ago and describes an angioplasty, but stated he did not have a stent placed at that time. He is not a great historian. PAST MEDICAL HISTORY 1. Coronary disease with prior percutaneous intervention about five years ago. So I am thinking it was angioplasty and not stent placed. 2. Diabetes 3. Hypertension 4. COPD 5. Stroke with right thalamic spontaneous intracranial hemorrhage 6. BPH PAST SURGICAL HISTORY 1. Back history MEDICATIONS 1 Protonix 2. Metoprolol 3. Norvasc 4. He was previously on Plavix which had been discontinued. ALLERGIES NO KNOWN DRUG ALLERGIES. FAMILY HISTORY Denies any family history of early coronary artery disease or sudden cardiac . SOCIAL HISTORY Quit smoking 40 years ago. Denies any alcohol use. Denies any drug use. He lives alone with his dog, but states he has neighbors who visit. REVIEW OF SYSTEMS A 12-point review of systems was performed and is negative unless otherwise as noted in the history of present illness. PHYSICAL EXAMINATION Temperature 98, pulse 77, blood pressure 130/79. GENERAL: He is alert and oriented x3 in no acute distress. HEENT: Exam shows pupils are reactive to light and accommodation. Extraocular movements are intact. No elevation of jugular venous distension. No thyromegaly or lymphadenopathy. No crepitus. LUNGS: Clear to auscultation bilaterally. CARDIOVASCULAR: Regular rate and rhythm without murmurs, rubs or gallops. ABDOMEN: Exam is nontender and nondistended with good bowel sounds. No hepatosplenomegaly. EXTREMITIES: No clubbing, cyanosis or edema. Good peripheral pulses. NEUROLOGIC: Cranial nerves intact. Motor and sensory grossly intact. LABORATORY DATA WBC 7.2, hemoglobin 13.3, platelet count is 163. Sodium 136, potassium 3.8, BUN is 22, creatinine 0.96, troponin initially 0.09 up to 6.04. Electrocardiogram shows sinus rhythm. Right bundle-branch block, left anterior hemiblock, possible Q-waves inferiorly consistent with an old myocardial infarction and no significant ischemic changes. ASSESSMENT 1. [id number] UT 2. Prior history of coronary disease and revascularization. 3. Diabetes 4. Hypertension 5. COPD 6. Hyperlipidemia 7. Spontaneous right thalamic intracranial hemorrhage on Plavix. PLAN The patient's symptoms are suggestive troponin elevation consistent with [id number] UT acute coronary syndrome. He is currently chest pain-free. Electrocardiogram shows no significant active ischemic changes. The patient will need a formal evaluation for obstructive coronary disease with cardiac catheterization. Prior to proceeding with catheterization, I would like to determine his candidacy for periprocedural anticoagulation with heparin or Angiomax in addition to the potential possibility of Plavix following the procedure if interventions is necessary. A bare metal stent would require approximately 6-8 weeks minimal of Plavix therapy. I would like to see if neurosurgery, would be kind enough to add insight to the candidacy for antiplatelet and anticoagulation after the recent intracranial hemorrhage. If he is a good candidate, then we will proceed with potential cardiac catheterization tomorrow, if not, we will optimize his medical regimen and follow him on an outpatient basis. We will also follow up now with a 2-D echocardiogram and will monitor troponin trend. MD LEO Ahumada/REHAN /12:45 PM /12:56 PM
[2016-11-28] MEDS: ACETAMINOPHEN/HYDROcodone 325 MG/5 MG TAB PO PRN (15:39)
--- NOTE | 2016-11-28 17:48 | PD.CONS ---
[facility] Service Neurosurgery Consult Requested By Antonina Vivas Reason for Consult Basal ganglia hemorrhage. Clearance for catheterization Primary Care Physician No Primary Care Physician History of Present Illness This is an 81-year-old male with a recent prior ischemic stroke who had a right thalamic spontaneous hemorrhage while on Plavix. He presented back on November 08 and was hospitalized. He had conservative management. He was on Plavix with a prior history of coronary disease, but the Plavix was discontinued. Brain CT scan showed no progression and actually some small regression. He now presents with an episode of substernal chest pain which came on spontaneously. The initial troponin was negative. The second troponin was six. Electrocardiogram did not show any significant ischemic changes. He had received sublingual nitroglycerin with relief of his symptoms. He states that he had a heart attack 5 years ago and describes an angioplasty. He was evaluated by a commissioner of officials who recommended a cardiac catheterization. Neurosurgical consultation was requested REVIEW OF SYSTEMS A 12-point review of systems was performed and is negative unless otherwise as noted in the history of present illness. PHYSICAL EXAMINATION Temperature 98, pulse 77, blood pressure 130/79. GENERAL: He is alert and oriented x3 in no acute distress. HEENT: Exam shows pupils are reactive to light and accommodation. Extraocular movements are intact. No elevation of jugular venous distension. No thyromegaly or lymphadenopathy. No crepitus. LUNGS: Clear to auscultation bilaterally. CARDIOVASCULAR: Regular rate and rhythm without murmurs, rubs or gallops. ABDOMEN: Exam is nontender and nondistended with good bowel sounds. No hepatosplenomegaly. EXTREMITIES: No clubbing, cyanosis or edema. Good peripheral pulses. NEUROLOGIC: Cranial nerves intact. Motor and sensory grossly intact. Review of Systems Constitutional: DENIES: Diaphoretic episodes, Fatigue, Fever, Weight gain, Weight loss, Chills, Dizziness, Change in appetite, Night Sweats Endocrine: DENIES: Heat/cold intolerance, Polydipsia, Polyuria, Polyphagia Eyes: DENIES: Blurred vision, Diplopia, Eye inflammation, Eye pain, Vision loss , Photosensitivity, Double Vision Ears, nose, mouth, throat: DENIES: Tinnitus, Hearing loss, Vertigo, Nasal discharge, Oral lesions, Throat pain, Hoarseness, Ear Pain, Running Nose, Epistaxis, Sinus Pain, Toothache, Odynophagia Respiratory: DENIES: Apneas, Cough, Snoring, Wheezing, Hemoptysis, Sputum production, Shortness of breath Cardiovascular: DENIES: Chest pain, Palpitations, Syncope, Dyspnea on Exertion , PND, Lower Extremity Edema, Orthopnea, Claudication Gastrointestinal: COMPLAINS OF: Abdominal pain, Black stools, Bloody stools, Constipation, Diarrhea, Nausea, Vomiting, Difficulty Swallowing, Anorexia Genitourinary: DENIES: Sexual dysfunction, Urinary frequency, Urinary incontinence, Urgency, Hematuria, Dysuria, Nocturia, Penile Discharge, Testicular Pain, Testicular Swelling Musculoskeletal: DENIES: Joint pain, Muscle aches, Stiffness, Joint Swelling, Back pain, Neck pain Integumentary: DENIES: Abnormal pigmentation, Nail changes, Pruritus, Rash Hematologic/lymphatic: DENIES: Bruising, Lymphadenopathy Immunologic/allergic: DENIES: Eczema, Urticaria Neurologic: DENIES: Abnormal gait, Headache, Localized weakness, Paresthesias, Seizures, Speech Problems, Tremor, Poor Balance Psychiatric: DENIES: Anxiety, Confusion, Mood changes, Depression, Hallucinations, Agitation, Suicidal Ideation, Homicidal Ideation, Delusions Past Family Social History Allergies: Coded Allergies: No Known Allergies (Unverified , 07/09/11) Past Medical History 1. Coronary disease with prior percutaneous intervention about five years ago. So I am thinking it was angioplasty and not stent placed. 2. Diabetes 3. Hypertension 4. COPD 5. Stroke with right thalamic spontaneous intracranial hemorrhage 6. BPH Past Surgical History Laminectomy Reported Medications 1 Protonix 2. Metoprolol 3. Norvasc 4. He was previously on Plavix which had been discontinued. Active Ordered Medications Current Medications Sodium Chloride (NS Flush) 2 ml UNSCH PRN IVF FLUSH AFTER USING IV ACCESS; Start 11/28/16 at 02:45; Stop 11/28/16 at 04:04; Status DC Al Hydrox/Mg Hydrox/Simethicone (Mag-Al Plus Susp Liq) 30 ml ONCE STAT PO Last administered on 11/28/16t 03:36; Start 11/28/16 at 02:40; Stop 11/28/16 at 02:41; Status DC Famotidine (Pepcid) 20 mg ONCE ONCE PO Last administered on 11/28/16 03:36; Start 11/28/16 at 02:45; Stop 11/28/16 at 02:46; Status DC Sodium Chloride (NS Flush) 2 ml UNSCH PRN IV FLUSH FLUSH AFTER USING IV ACCESS ; Start 11/28/16 at 04:00 Sodium Chloride (NS Flush) 2 ml BID IV FLUSH Last administered on 11/28/16 08: 58; Start 11/28/16 at 09:00 Naloxone HCl (Narcan Inj) 0.4 mg UNSCH PRN IV SEE LABEL COMMENTS; Start at 04:00 Nitroglycerin (Nitrostat Sl) 0.4 mg Q5M PRN SL CHEST PAIN Last administered on 11/28/16 05:13; Start 11/28/16 at 05:15 Pantoprazole Sodium (Protonix Inj) 40 mg ONCE ONCE IV PUSH Last administered on 11/28/16 06:42; Start 11/28/16 at 06:30; Stop 11/28/16 at 06:31; Status DC Acetaminophen/ Hydrocodone Bitart ([place] 5-325 Mg) 1 tab Q4H PRN PO PAIN SCALE 3 TO 5 Last administered on 11/28/16 15:39; Start 11/28/16 at 15:30 Acetaminophen/ Hydrocodone Bitart ([place] 10-325 Mg) 1 tab Q4H PRN PO PAIN SCALE 6 TO 10; Start 11/28/16 at 15:30 Naloxone HCl (Narcan Inj) 0.4 mg UNSCH PRN IV SEE LABEL COMMENTS; Start at 15:30; Stop 11/28/16 at 15:30; Status DC Family History Denies any family history of early coronary artery disease or sudden cardiac . Social History Former smoker, quit smoking 40 years ago. Denies any alcohol use. Denies any drug use. He lives alone with his dog, but states he has neighbors who visit. Physical Exam Vital Signs Vital Signs Date Time Temp Pulse Resp B/P Pulse Ox O2 Delivery O2 Flow Rate FiO2 11/28/16 16:00 97.4 101 20 142/84 95 11/28/16 13:44 86 11/28/16 12:15 97.8 92 20 137/84 99 11/28/16 09:06 77 18 130/79 11/28/16 08:45 95 18 134/82 96 Nasal Cannula 2 11/28/16 07:07 95 18 126/74 96 Room Air 11/28/16 05:39 112 14 145/88 99 Room Air 11/28/16 03:45 94 14 152/78 98 Room Air 11/28/16 01:36 98.3 117 16 156/82 96 Room Air Physical Exam The patient is alert, awake and oriented to time, place and person. Speech is fluent. Higher cognitive functions are normal. Cranial nerve examination demonstrates the pupils to be equal, round, and reactive to light. Extra-ocular movements are intact. Facial motor and sensory function are normal and symmetrical. Gross hearing is decreased. The uvula is midline and elevates symmetrically with the soft palate. Sternocleidomastoid and trapezius muscles have normal and symmetrical strength. Other cranial nerves are intact. Neck is soft and supple. Cervical spine has a decreased range of motion in anterior flexion, extension, lateral bending, and rotation without pain. There is no tenderness to palpation to the spinous processes or paraspinal muscles. Muscle testing reveals normal bulk and tone overall without rigidity, spasticity , fasciculations, or atrophy. Muscle strength is 5/5 in all muscle groups of both upper extremities including deltoid, biceps, triceps, brachioradialis, wrist extension and senior merchandiser. In the lower extremities, strength is 5/5 in both iliopsoas, quadriceps, hamstrings, plantar flexion, dorsiflexion, and extensor hallicus longus. Sensory examination is intact to light touch and sharp/dull discrimination in both the upper and lower extremities, symmetrically. Deep tendon reflexes are 2+ and symmetrical in the biceps, triceps, and brachioradialis, bilaterally, in the upper extremities. In the lower extremities , the patellar and Achilles are 2+, bilaterally. There is a bilateral plantar flexion response. Hoffmanns sign is negative. There is no clonus or other abnormal reflexes noted. Cerebellar examination is intact to [id number] test, rapid rhythmic alternating motion. There is no dysmetria, dysdiadochokinesia, truncal ataxia, or tremor. Laboratory Laboratory Tests Test 11/28/16 11/28/16 11/28/16 02:48 08:50 15:43 White Blood Count 7.2 Red Blood Count 4.21 Hemoglobin 13.3 Hematocrit 37.8 Mean Corpuscular Volume 89.7 Mean Corpuscular Hemoglobin 31.6 Mean Corpuscular Hemoglobin 35.2 Concent Red Cell Distribution Width 12.2 Platelet Count 163 Mean Platelet Volume 7.9 Neutrophils (%) (Auto) 87.0 Lymphocytes (%) (Auto) 5.7 Monocytes (%) (Auto) 6.5 Eosinophils (%) (Auto) 0.4 Basophils (%) (Auto) 0.4 Neutrophils # (Auto) 6.2 Lymphocytes # (Auto) 0.4 Monocytes # (Auto) 0.5 Eosinophils # (Auto) 0.0 Basophils # (Auto) 0.0 CBC Comment DIFF FINAL Differential Comment Sodium Level 136 Potassium Level 3.8 Chloride Level 100 Carbon Dioxide Level 27.6 Anion Gap 8 Blood Urea Nitrogen 22 Creatinine 0.96 Estimat Glomerular Filtration 75 Rate Random Glucose 119 Calcium Level 8.8 Magnesium Level 1.8 Total Bilirubin 0.3 Aspartate Amino Transf 26 (AST/SGOT) Alanine Aminotransferase 24 (ALT/SGPT) Alkaline Phosphatase 111 Troponin I 0.09 6.04 5.80 Total Protein 7.6 Albumin 3.6 Lipase 291 Total Creatine Kinase 172 196 Result Diagram: 11/28/1624711/28/16247 Imaging Last Impressions Chest X-Ray 11/28/16239 Signed Impressions: Service Date/Time: November 02:59 - CONCLUSION: Low lung volumes. No acute cardiopulmonary disease identified Seb Aguilar MD Attending Statement Status post remote basal ganglia hemorrhage 1 month ago. The patient has recover from the neurological standpoint without complications. He presents with an acute coronary syndrome. He is clear from the neurosurgical standpoint to proceed with cardiac catheterization Pulmonary. aggressive pulmonary toilette, nasotracheal suction, and breathing treatments with nebulizers. PT and OT evaluation Nutrition. Oral diet Renal. Gentle IV fluid resuscitation Avoid nephrotoxins, monitor closely urine output, BUN and creatinine Endocrine. Monitor serial Acu checks and SSI as needed in detail ID monitor for signs of infection Protonix for stress ulcer prophylaxis Antonio hose and SCD's for DVT prophylaxis Baldemar Read MD Nov 28, 2016 17:48
[2016-11-29] VITALS (15 sets, daily range): BP systolic 91–138; BP diastolic 60–88; PULSE 79–128; RESP 12–22; TEMP 97.6–98.7; O2SAT 94–99
[2016-11-29] MEDS: ACETAMINOPHEN/HYDROcodone 325 MG/5 MG TAB PO PRN ×2 (03:00→07:36)
[2016-11-29 07:59] LABS: BASOPHIL % 0.3 % (0.0-2.0); EOSINOPHIL % 0.6 % (0.0-4.0); HEMATOCRIT 36.8 % (39.0-51.0); HEMO FLAGS DIFF FINAL; LYMPH % 17.5 % (9.0-44.0); LYMPHOCYTE # 0.7 TH/MM3 (1.0-4.8); MEAN CELL VOLUME 90.2 FL (80.0-100.0); MEAN CORPUSCULAR HEMOGLOBIN 31.5 PG (27.0-34.0); MEAN CORPUSCULAR HGB CONC 34.9 % (32.0-36.0); MONO % 9.1 % (0.0-8.0); NEUT % 72.5 % (16.0-70.0); PLATELET COUNT 153 TH/MM3 (150-450); RED BLOOD COUNT 4.08 MIL/MM3 (4.50-5.90); RED CELL DISTRIBUTION WIDTH 12.5 % (11.6-17.2); WHITE BLOOD COUNT 4.1 TH/MM3 (4.0-11.0)
[2016-11-29 08:25] LABS: BICARBONATE 26.8 MEQ/L (21.0-32.0); POTASSIUM 3.8 MEQ/L (3.5-5.1)
[2016-11-29] MEDS: SODIUM CHLORIDE 0.9% FLUSH 10 ML FLUSH IV FLUSH SCH ×2 (08:26→21:57)
[2016-11-29] MEDS ORDERED: HEPARIN-NS/PF INJ 500 ML ONE (09:43)
[2016-11-29] MEDS ORDERED: MIDAZOLAM HCL 2 MG/2 ML VIAL ONE ×2 (10:02→11:08)
[2016-11-29] MEDS ORDERED: HEPARIN SODIUM - IV 10,000 UNITS/10 ML VIAL ONE (10:17)
--- NOTE | 2016-11-29 10:30 | HHI.PR ---
Subjective Remarks f/u chest pain Denies any chest pain overnight, no palpitations, no shortness of breath. Echocardiogram just completed. Objective Vitals Vital Signs Date Time Temp Pulse Resp B/P Pulse Ox O2 Delivery O2 Flow Rate FiO2 11/29/16 08:00 98.0 79 16 124/81 94 11/29/16 04:00 97.6 103 20 135/79 96 11/29/16 00:00 98.3 111 20 131/74 97 11/28/16 20:00 97.6 67 20 132/78 97 11/28/16 19:38 112 11/28/16 16:00 97.4 101 20 142/84 95 11/28/16 13:44 86 11/28/16 12:15 97.8 92 20 137/84 99 I/O 11/28/16 11/28/16 11/28/16 11/29/16 11/29/16 11/29/16 07:00 15:00 23:00 07:00 15:00 23:00 Intake Total 240 ml 240 ml 0 ml Output Total 100 ml 250 ml 300 ml Balance 140 ml -10 ml -300 ml Intake Oral 240 ml 240 ml 0 ml Output Urine Total 100 ml 250 ml 300 ml # Voids 1 # Bowel Movements 1 1 Result Diagram: 11/29/16 0721 11/29/16 0725 Objective Remarks GENERAL: Well-nourished, well-developed patient in NAD. CARDIOVASCULAR: Regular rate and rhythm. S1, S2 noted. No murmur appreciated. RESPIRATORY: No accessory muscle use. Clear to auscultation. Breath sounds equal bilaterally. GASTROINTESTINAL: Abdomen soft, non-tender, nondistended. Normoactive bowel sounds x4. MUSCULOSKELETAL: No obvious deformities. Extremities without clubbing, cyanosis , or edema. NEUROLOGICAL: Awake and alert. No obvious cranial nerve deficits. A/P Problem List: (1) NSTEMI (non-ST elevated myocardial infarction) ICD Code: I21.4 Status: Acute (2) Hemorrhagic cerebrovascular accident (CVA) ICD Code: I61.9 Status: Acute Assessment and Plan Mr. Carlisle is an 81-year-old male patient with a known medical history of [place] x 5 years ago, CAD with stent placement, DM, HTN, COPD and history of CVA who presented to the ED this am with complaints of burning chest pain reported similar to his previous [place] years ago. He did admit to associated diaphoresis and dizziness. The patient recently had a right Thalmic hemorrhage on 11/08 and was discharged from [facility] to home on 11/26/16 off Plavix (previously placed on this for stents 5 years ago). NSTEMI - Off Plavix since right Thalmic hemorrhage 11/08 - Initial Troponin I - 0.09, max at 6.04. Cardiology consulted, for cardiac catheterization today. Seen by neurosurgery, cleared for cardiac catheterization by neurosurgery. Will likely need a bare metal stent. - 12 lead EKG reviewed showing inferior lead q waves suggestive of old [place], right bundle branch block noted with no acute ischemic changes noted. - Nitroglycerin 0.4 mg SL q5 mins prn chest pain x 3 History of right Thalmic Hemorrhage on 11/08/16 - Patient currently asymptomatic. Denies any headache, lightheadedness or dizziness. Cleared by neurosurgery for cardiac catheterization. GI Prophylaxis: Protonix DVT prophylaxis: SCDs/TEDs Discharge Planning Possible discharge tomorrow after cleared by cardiology. Donovan Frank MD Nov 29, 2016 10:30
[2016-11-29] MEDS ORDERED: CLOPIDOGREL 300 MG TAB ONE (11:09)
[2016-11-29] MEDS ORDERED: SODIUM CHLOR 0.9% 1000 ML INJ 1,000 ML IV SCH (11:10)
[2016-11-29] MEDS ORDERED: MISC INFORMATION XX ONE (11:15)
[2016-11-29] MEDS ORDERED: LIDOCAINE 2% JELLY 30 ML TUBE TOP PRN (11:15)
[2016-11-29] MEDS ORDERED: CLOPIDOGREL 300 MG TAB PO ONE (11:15)
[2016-11-29] MEDS ORDERED: BACITRACIN OINT 0.9 GM PKT TOP ONE (11:15)
[2016-11-29] MEDS ORDERED: IOHEXOL 350 MG/ML 100 ML BTL (for Cath Lab) OTHER ONE (11:25)
--- NOTE | 2016-11-29 11:27 | CATHPROC ---
[employer] HIS Report Study Information Study Number Admission Scheduled Start Study Start [id number] Nov 28 2016 10:06AM 11/29/2016 Nov 29 2016 9:43AM [place] [facility] Cardiac Catheterization Admit Source Facility Department Other [facility] - Service Girl Physician and Clinical Staff Initial Cayden Turner Feed Crusher Operator Anthony Richter,RAUL Feed Crusher Operator Norman Yen,RAUL Recorder Taran, Amena,RT(R) Scrub Dawood, Parisa,DATABASE SUPPORT TECH2 Procedures Performed Procedure Location (Site) Vessel Name Coronary Angiograms LCA Left Coronary Coronary Angiograms RCA Right Coronary L Heart Cath PTCA CIRC Mid CIRC Stent CIRC Mid CIRC Wire insertion Fem Art (right) Femoral Art Wire insertion Radial (right) Radial Art. Equipment Time Cell Pourer Description Size Mfg Part Number Used/Scraped COPILOT VALVE, BLEEDBACK [id number] 10:28 [employer] Used CONTROL *[id number] 10:50 [employer] WIRE, ASAHI PROWATER 180CM 180CM Used *[id number] TRANSDUCER, TRUWAVE [id number] 10:06 AGUIRRE RENDON * Used W/STOCKCOCK *[id number] *[id number] *[id number] [id number] *[id number] 534-623T *[id number] 10:06 [employer] PACK, CCL CUSTOM * Used *[id number] 10:06 [employer] SUPPORT, ARTERIAL ADULT 47500 Used [id number] 10:06 [employer] PACER PEN, SKIN DUAL W/ RULER * Used *[id number] 10:38 [employer] BALLOON, 1.5 X 6MM EUPHORA 6MM Used *[id number] 10:45 [employer] BALLOON, 2.5 X 15MM EUPHORA 15MM Used *[id number] 11:01 [employer] STENT, 2.5 26 INTEGRITY 2.5 26 Used *[id number] [id number] 10:38 [employer] 30 AIMEE INDEFLATOR Used *[id number] BAND, RADIAL COMPRESSION TR [id number] 11:14 [employer] 29CM Used LARGE 29 *[id number] SHEATH, FR6 RADIAL PRELUDE 10:06 [employer] FR 6 [id number] Used EASE 11CM [id number] 10:06 [employer] WIRE, EXCHANGE 260CM 3MMJ 260CM Used *[id number] 11:04 [employer] OMNIPAQUE, 350 MG, 150ML 150ML [id number] Used 10:06 [employer] OMNIPAQUE, 350 MG, 150ML 150ML [id number] Used [id number] 10:06 [employer] BL[employer]ET,WARM AIR CCL * Used *[id number] WIRE, RUNTHROUGH NS FLOPPY [id number] 10:28 [employer] MEDICAL 180CM Used .014 180CM *[id number] Equipment Model, Serial, Lot Number and Expiration Data Description Model Number Serial Number Lot Number Expiration Date STENT, 2.5 26 INTEGRITY [id number] 09-04-2015 History: Current Medications Medication Dosage/Unit Route Frequency Last Date/Time Taken LOPRESSOR NORVASC History: Risk Factors Family History of Hypertension Dyslipidemia Previous TX Previous Heart Failure Premature CAD Yes Yes No Yes No Prior Valve Prior PCI Prior PCIDate Prior CABG Surgery No Yes 05/19/2010 No Cerebrovascular Peripheral Artery Chronic Lung On Dialysis Diabetes Diabetes Therapy Disease Disease Disease No Yes No Yes Yes Diet History: Symptoms/Diagnosis Selection Items Chest pain History: Stress Tests Stress or Imaging Studies Performed No History: Other Current Smoker Method Quit Packs a Day Years Used Pack Years No Cigarettes 40 Years Ago 1 20 20 Labs Hgb (g/dl) Hct (%) RBC (MIL/MM3) WBC (l/cumm) Platelets (thousands) 11.60-17.00 35.00-51.00 4.00-5.90 4.00-11.00 150.00-450.00 13.3 37.8 4.2 7.2 163 Glucose (mg/dl) BUN (mg/dl) Creatinine (mg/dl) BUN:Creatinine (1:x) 74.00-106.00 7.00-18.00 0.50-1.30 10.00-20.00 119 22 0.6 36.7 Na (meq/l) K (meq/l) Cl (meq/l) CO2 (mmol/L) Ca (mg/dl) 136.00-145.00 3.50-5.10 98.00-107.00 21.00-32.00 8.50-10.10 133 3.8 100 27.6 8.8 Troponin I (ng/ml) CPK (u/l) CPK-MB (ng/ML) 0.02-0.05 26.00-308.00 0.50-3.60 5.8 172 Not Drawn Medication Medication Total Dose (Bolus/Oral) Medication Total Dosage/Unit 1% XYLOCAINE 20 mL FENTANYL 50 mcg HEPARIN 8000 units PLAVIX 600 mg RADIAL COCKTAIL 5 mL (Bolus) VERSED 2 mg Medications (Bolus/Oral) Medication Time Given Dosage/Unit Administered By Reason VERSED 11/29/2016 10:06:00 AM 1 mg Anthony Richter 1 mg VERSED given in lab by Anthony Richter RN via Peripheral IV. FENTANYL 11/29/2016 10:07:00 AM 25 mcg Anthony Richter 25 mcg FENTANYL given in lab by Anthony Richter RN via Peripheral IV. 1% XYLOCAINE 11/29/2016 10:08:12 AM 20 mL Cayden Alcocer 20 mL 1% XYLOCAINE given in lab by Cayden Alcocer in Right Radial via Subcutaneous. RADIAL COCKTAIL 11/29/2016 10:17:57 AM 5 mL (Bolus) Cayden Alcocer 5 mL (Bolus) RADIAL COCKTAIL given in lab by Cayden Alcocer via Radial. Using [Solution Name]. NITRO HEPARIN 11/29/2016 10:18:15 AM 3000 units Anthony Richter 3000 units HEPARIN given in lab by Anthony Richter RN via Peripheral IV. HEPARIN 11/29/2016 10:28:58 AM 5000 units Anthony Richter 5000 units HEPARIN given in lab by Anthony Richter RN via Peripheral IV. VERSED 11/29/2016 10:35:17 AM 1 mg Anthony Richter 1 mg VERSED given in lab by Anthony Richter RN via Peripheral IV. FENTANYL 11/29/2016 10:35:27 AM 25 mcg Anthony Richter 25 mcg FENTANYL given in lab by Anthony Richter RN via Peripheral IV. PLAVIX 11/29/2016 11:15:21 AM 600 mg Anthony Richter 600 mg PLAVIX given in lab by Anthony Richter RN via Oral. Medication (Drip) Medication Time Given Dosage/Unit Concentration/Unit Diluent (ml) Solutio n IV Solutions 11/29/2016 9:47:40 AM 0 mL (IV) 500 NaCl .9 Patient arrived on IV Solutions in Left Wrist via Peripheral IV. Pump/Drip Flow = 20 ml/hr using NaCl .9. Initial Case Assessment Cardiovascular HR Rhythm NIBP Chest Pain 70 REG 128/83 0 Edema Present Skin color Skin None Normal Warm Circulatory - Right Pulses Dorsalis Pedis Femoral Radial 2 2 2 Scale (0,1,2,3,4,d) Circulatory - Left Pulses Dorsalis Pedis Femoral Radial 2 2 Scale (0,1,2,3,4,d) Circulatory - Lower Extremities Color Lower Right Color Lower Left Normal Normal Neurological State Oriented to time-place- Alert Moves all extremities person Respiration - General Respiration Rate SpO2 (%) (B/min) 20 98 Final Case Assessment Cardiovascular HR Rhythm NIBP Chest Pain 97 REG 141/96 0 Edema Present Skin color Skin None Normal Warm Circulatory - Right Pulses Dorsalis Pedis Femoral Radial 2 2 2 Scale (0,1,2,3,4,d) Circulatory - Left Pulses Dorsalis Pedis Femoral Radial 2 2 Scale (0,1,2,3,4,d) Circulatory - Lower Extremities Color Lower Right Color Lower Left Normal Normal Neurological State Oriented to time-place- Alert Moves all extremities person Respiration - General Respiration Rate SpO2 (%) O2 (lpm) (B/min) 14 97 2 Chronological Log Time Study Chronological Log 9:38:47 Patient arrived via Bed. Vitals capture started with the following parameters, Patient=Adult, Interval=5 min, Initial Pr yhdshd=403 mmHg, 9:45:54 Deflation Rate=5 mmHg 9:45:56 Patient Name, D.O.B, / Armband Verified By R.N. 9:45:57 Consent signed by the physician and the patient and verified by the Service Girl staff. 9:45:58 Pre-op and post- op instructions given; patient acknowledges understanding of instructions. 9:45:59 Verbal Stimulation=2 Physical Stimulation=2 Airway=2 Respiration=2 TOTAL=8. (0=absent, 1=li mited, 2=present) Allens test performed on the right radial and ulnar artery BY Antonina YEN WITH A POSITIVE RESULT 9:46:03 9:46:30 DD=078 bpm, ZXUG=292/84 mmhg, SpO2=97.0 %, Resp=14 B/min, Pain=0, Pankaj=10, Hensley=2 9:46:41 Patient has been NPO for More than 6Hrs. 9:46:42 Skin Breakdown-NONE 9:46:45 A # 20 IV was noted in the Wrist (left). Grade = 0 9:47:40 Patient arrived on IV Solutions in Left Wrist via Peripheral IV. Pump/Drip Flow = 20 ml/hr using NaCl .9. 9:47:59 A # 20 IV was noted in the Antecubital (right). Grade = 0 SALINE LOCKED 9:51:29 HR=81 bpm, FXHY=105/88 mmhg, SpO2=95.0 %, Resp=18 B/min, Pain=0, Pankaj=10, Hensley=2 9:51:53 Reference ECG taken 9:56:26 HR=97 bpm, EDRH=071/90 mmhg, SpO2=97.0 %, Resp=19 B/min, Pain=0, Pankaj=10, Hensley=2 9:56:54 Pressure channel 1 zeroed. 10:01:27 HR=78 bpm, CWXL=461/83 mmhg, SpO2=96.0 %, Resp=15 B/min, Pain=0, Pankaj=10, Hensley=2 Assessment: Initial Case, HR=70 BPM, Rhythm=REG, LKMC=213/83 mmhg, Chest Pain=0, Edema=None, Color=Normal, Skin = Warm Right Pulses: Geraldo Ped=2, Femoral=2, Radial=2 Left Pulses: Geraldo Ped=2, Femoral=2 10:02:06 Lower Right Extremities: Color=Normal Lower Left Extremities: Color=Normal Neurological: State=Alert, Ox3, [place] Respiration: Resp=20 B/min, SpO2=98 % 10:02:57 Right groin prepped with 2% chlorhexidine, and with a 3 min. waiting time. 10:03:00 Right Radial and groin(s) prepped with 2% chlorhexidine, and with a 3 min. waiting time. 10:03:09 MD paged 10:05:20 MD arrived. 10:06:00 1 mg VERSED given in lab by Anthony Richter RN via Peripheral IV. 10:06:26 HR=73 bpm, ZMAT=051/85 mmhg, SpO2=97.0 %, Resp=11 B/min, Pain=0, Pankaj=10, Hensley=2 10:06:55 Case Start 10:07:00 Verbal Stimulation=2 Physical Stimulation=2 Airway=2 Respiration=2 TOTAL=8. (0=absent, 1=li mited, 2=present) 10:07:00 25 mcg FENTANYL given in lab by Anthony Richter RN via Peripheral IV. 10:08:12 20 mL 1% XYLOCAINE given in lab by Cayden Alcoecr in Right Radial via Subcutaneous. Time Out. Correct patient, correct procedure,correct physician, ,power injector not loaded with contrast with surgical 10:09:57 team present. Time Out Concurred by MD, individual staff and UNIX ADMINISTRATOR in procedure 10:10:25 Access site was Radial Artery.RT 10:10:40 A wire was inserted via Fem Art (right). 10:11:25 HR=83 bpm, ETZS=532/94 mmhg, SpO2=95.0 %, Resp=14 B/min, Pain=0, Pankaj=10, Hensley=2 A SHEATH, FR6 RADIAL PRELUDE EASE 11CM FR 6 was advanced into the Fem Art (right) using the Per cutaneous 10:11:44 technique. 10:16:31 HR=67 bpm, YPVA=614/80 mmhg, SpO2=95.0 %, Resp=11 B/min, Pain=0, Pankaj=10, Hensley=2 10:17:57 5 mL (Bolus) RADIAL COCKTAIL given in lab by Cayden Alcocer via Radial. Using [Solution Nam e]. NITRO 10:18:15 3000 units HEPARIN given in lab by Anthony Richter RN via Peripheral IV. A JR 5.0 INFINITI CATHETER FR 6 was advanced over a wire. OMNIPAQUE, 350 MG, 150ML 150ML was us ed for 10:18:25 injections. Recorded Pressure: LV, RF=686, Condition=Condition 1 10:18:40 (Left Ventricle) LV 112/5/7 Recorded Pressure: LV, Ao, ES=937, Condition=Condition 1 10:18:51 (Left Ventricle) LV 104/2/4, (Aorta) Ao 109/72/91 10:19:58 The RCA was injected and visualized at various angles. OMNIPAQUE, 350 MG, 150ML 150ML used . After removing the current catheter a JL 3.5 INFINITI CATHETER FR 6 was advanced over a WIRE, E XCHANGE 260CM 10:20:56 3MMJ 260CM. 10:21:30 HR=86 bpm, ORZY=008/77 mmhg, SpO2=95 %, Resp=11 B/min, Pain=0, Pankaj=10, Hensley=2 Recorded Pressure: Ao, HR=96, Condition=Condition 1 10:22:54 (Aorta) Ao 110/73/90 10:23:11 The LCA was injected and visualized at various angles. OMNIPAQUE, 350 MG, 150ML 150ML used . After removing the current catheter a AL 2 GUIDE CATHETER FR 6 was advanced over a WIRE, EXCHAN GE 260CM 10:25:19 3MMJ 260CM. 10:26:27 HR=88 bpm, SZDG=630/82 mmhg, SpO2=94.0 %, Resp=10 B/min, Pain=0, Pankaj=10, Hensley=2 10:28:58 5000 units HEPARIN given in lab by Anthony Richter RN via Peripheral IV. 10:31:34 JU=906 bpm, ZAZN=832/69 mmhg, SpO2=96.0 %, Resp=11 B/min, Pain=0, Pankaj=10, Hensley=2 10:34:58 A WIRE, RUNTHROUGH NS FLOPPY .014 180CM 180CM was inserted via Radial (right). 10:35:17 1 mg VERSED given in lab by Anthony Richter RN via Peripheral IV. 10:35:27 25 mcg FENTANYL given in lab by Anthony Richter RN via Peripheral IV. 10:36:27 JM=813 bpm, DWVQ=460/78 mmhg, SpO2=97.0 %, Resp=23 B/min, Pain=0, Pankaj=10, Hensley=2 10:37:41 Activated Clotting Time Drawn A BALLOON, 1.5 X 6MM EUPHORA 6MM was inserted over WIRE, RUNTHROUGH NS FLOPPY .014 180CM 180CM via 10:41:03 the CIRC Mid. 10:41:28 EH=916 bpm, ICMA=776/92 mmhg, SpO2=95.0 %, Resp=12 B/min, Pain=0, Pankaj=10, Hensley=2 10:43:24 The LCA was injected and visualized at various angles. OMNIPAQUE, 350 MG, 150ML 150ML used . A BALLOON, 1.5 X 6MM EUPHORA 6MM over a WIRE, RUNTHROUGH NS FLOPPY .014 180CM 180CM in the CIRC Mid 10:43:32 was inflated using a 30 AIMEE INDEFLATOR at 8 aimee for 12 sec. A BALLOON, 1.5 X 6MM EUPHORA 6MM over a WIRE, RUNTHROUGH NS FLOPPY .014 180CM 180CM in the CIRC Mid 10:43:50 was inflated using a 30 AIMEE INDEFLATOR at 8 aimee for 12 sec. A BALLOON, 1.5 X 6MM EUPHORA 6MM over a WIRE, RUNTHROUGH NS FLOPPY .014 180CM 180CM in the CIRC Mid 10:44:13 was inflated using a 30 AIMEE INDEFLATOR at 8 aimee for 7 sec. A BALLOON, 1.5 X 6MM EUPHORA 6MM over a WIRE, RUNTHROUGH NS FLOPPY .014 180CM 180CM in the CIRC Mid 10:44:25 was inflated using a 30 AIMEE INDEFLATOR at 8 aimee for 6 sec. 10:44:44 ACT (Normal Range 90-180) = 370 10:45:09 Balloon Removed. A BALLOON, 2.5 X 15MM EUPHORA 15MM was inserted over WIRE, RUNTHROUGH NS FLOPPY .014 180CM 180C M via 10:46:07 the CIRC Mid. 10:46:33 PT=271 bpm, YWAD=818/97 mmhg, SpO2=89.0 %, Resp=24 B/min, Pain=0, Pankaj=10, Hensley=2 A BALLOON, 2.5 X 15MM EUPHORA 15MM over a WIRE, RUNTHROUGH NS FLOPPY .014 180CM 180CM in the CI RC 10:46:41 Mid was inflated using a 30 AIMEE INDEFLATOR at 8 aimee for 10 sec. A BALLOON, 2.5 X 15MM EUPHORA 15MM over a WIRE, RUNTHROUGH NS FLOPPY .014 180CM 180CM in the CI RC 10:46:58 Mid was inflated using a 30 AIMEE INDEFLATOR at 8 aimee for 7 sec. 10:47:33 The LCA was injected and visualized at various angles. OMNIPAQUE, 350 MG, 150ML 150ML used . 10:48:10 Balloon Removed. 10:50:16 A WIRE, ASAHI PROWATER 180CM 180CM was inserted via Radial (right). 10:51:32 IF=306 bpm, JCFG=532/91 mmhg, SpO2=94.0 %, Resp=17 B/min, Pain=0, Pankaj=10, Hensley=2 10:52:34 A BALLOON, 1.5 X 6MM EUPHORA 6MM was inserted over WIRE, ASAHI PROWATER 180CM 180CM via the CIRC Mid. A BALLOON, 1.5 X 6MM EUPHORA 6MM over a WIRE, ASAHI PROWATER 180CM 180CM in the CIRC Mid was in flated 10:55:31 using a 30 AIMEE INDEFLATOR at 8 aimee for 8 sec. A BALLOON, 1.5 X 6MM EUPHORA 6MM over a WIRE, ASAHI PROWATER 180CM 180CM in the CIRC Mid was in flated 10:55:53 using a 30 AIMEE INDEFLATOR at 8 aimee for 10 sec. 10:56:06 Balloon Removed. 10:56:35 LP=758 bpm, QPQV=513/87 mmhg, SpO2=97.0 %, Resp=16 B/min, Pain=0, Pankaj=10, Hensley=2 10:57:34 A BALLOON, 2.5 X 15MM EUPHORA 15MM was inserted over WIRE, ASAHI PROWATER 180CM 180CM via t he CIRC Mid. A BALLOON, 2.5 X 15MM EUPHORA 15MM over a WIRE, ASAHI PROWATER 180CM 180CM in the CIRC Mid was inflated 10:58:54 using a 30 AIMEE INDEFLATOR at 8 aimee for 22 sec. A BALLOON, 2.5 X 15MM EUPHORA 15MM over a WIRE, ASAHI PROWATER 180CM 180CM in the CIRC Mid was inflated 10:59:25 using a 30 AIMEE INDEFLATOR at 9 aimee for 9 sec. A BALLOON, 2.5 X 15MM EUPHORA 15MM over a WIRE, ASAHI PROWATER 180CM 180CM in the CIRC Mid was inflated 10:59:48 using a 30 AIMEE INDEFLATOR at 10 aimee for 7 sec. A BALLOON, 2.5 X 15MM EUPHORA 15MM over a WIRE, ASAHI PROWATER 180CM 180CM in the CIRC Mid was inflated 11:00:01 using a 30 AIMEE INDEFLATOR at 10 aimee for 5 sec. 11:00:56 Balloon Removed. 11:01:32 HR=99 bpm, UDWE=931/80 mmhg, SpO2=96.0 %, Resp=15 B/min, Pain=0, Pankaj=10, Hensley=2 11:01:38 RUNTHRU Wire removed An STENT, 2.5 26 INTEGRITY 2.5 26 Bare Metal Stent was inserted through a AL 2 GUIDE CATHETER F R 6 over a 11:03:05 WIRE, [employer] PROWATER 180CM 180CM. A STENT, 2.5 26 INTEGRITY 2.5 26 was deployed using a 30 AIMEE INDEFLATOR at 14 atmospheres for 1 0 seconds in 11:03:19 the CIRC Mid. 11:04:01 The LCA was injected and visualized at various angles. OMNIPAQUE, 350 MG, 150ML 150ML used . 11:04:43 Delivery device removed 11:06:33 HR=44 bpm, STBO=783/92 mmhg, SpO2=88.0 %, Resp=9 B/min, Pain=0, Pankaj=10, Hensley=2 11:07:07 Ventricular Fibrillation noted. 11:07:25 Patient defibrillated at 350 joules. The ECG rhythm was noted as V-Fib. 11:08:37 The LCA was injected and visualized at various angles. OMNIPAQUE, 350 MG, 150ML 150ML used . 11:09:58 SINUS RYTHUM NOTED 11:10:38 A WIRE, EXCHANGE 260CM 3MMJ 260CM was inserted via Radial (right). Assessment: Final Case, HR=97 BPM, Rhythm=REG, SPYL=049/96 mmhg, Chest Pain=0, Edema=None, [place] r=Normal, Skin = Warm Right Pulses: Geraldo Ped=2, Femoral=2, Radial=2 Left Pulses: Geraldo Ped=2, Femoral=2 11:11:08 Lower Right Extremities: Color=Normal Lower Left Extremities: Color=Normal Neurological: State=Alert, Ox3, [place] Respiration: Resp=14 B/min, SpO2=97 %, O2=2 lpm 11:11:36 PQ=587 bpm, UIKC=360/96 mmhg, SpO2=97.0 %, Resp=15 B/min, Pain=0, Pankaj=10, Hensley=2 11:11:46 Catheter was removed ::44 Catheter(s) removed without difficulty Radial Compression Device Used. 15 mLs of air placed in BAND, RADIAL COMPRESSION TR LARGE 29 29 CM. Affected ::46 hand ~O2 SATURATION~ % O2 saturation. 11:14:08 Case End 11:14:10 Sterile dressing applied to site 11:14:11 No case complications noted. 11:14:12 Cine recording checked. 11:14:13 Bedside Report will be given. 11:14:14 Implantable Device card placed in patient's chart. 11:14:29 A Left Heart Cath was performed. 11:14:35 Patient moved to stretcher 11:14:36 Clinical correlaton risk stratification. 11:15:21 600 mg PLAVIX given in lab by Anthony Richter RN via Oral. 11:16:37 NX=830 bpm, EHHO=487/86 mmhg, SpO2=96.0 %, Resp=13 B/min, Pain=0, Pankaj=10, Hensley=2 11:19:21 ACT (Normal Range 90-180) = 290 11:21:30 Vitals capture stopped. End Study - Contrast Media Used In Study Contrast Total Opened (mL) Total Used (mL) Total Wasted (mL) Omnipaque 170 170 0 End Study - Maximum Contrast Load Max Contrast Load (mL) 552.7 End Study - Radiation Exposure Fluoro Time (minutes) 20.4 End Study - Sheaths Sheaths Pulled By Sheath Hold Time (min) Parisa Seay End Study - Patient Disposition Complications Transferred To Interventional Outcome No Service Girl Holding successful
[2016-11-29] MEDS ORDERED: PILL SPLITTER OTHER PRN (11:30)
--- NOTE | 2016-11-29 11:55 | MA ---
cc: YAMILE SWAIN DATE: 11/29/2016 PROCEDURE PERFORMED 1. Fluoroscopy with interpretation. 2. Coronary angiography. 3. Left heart catheterization. 4. Percutaneous intervention with bare metal stent to the mid left circumflex coronary artery. METHOD The risks, benefits and alternatives were discussed with the patient. The patient understood and consented to the procedure. The patient was brought to the cardiac catheterization lab and placed on the catheterization table. The right wrist was prepped and draped in a sterile fashion. The right wrist was anesthetized with 2% lidocaine. The right radial artery was cannulated and a 6-Dutch, 7 cm sheath was placed without difficulty. LEFT HEART CATHETERIZATION Intraventricular hemodynamics measured 104/2 mmHg. CORONARY ANGIOGRAPHY The left main coronary is angiographically normal. The left anterior descending coronary is a large caliber size and angiographically normal. It gives rise to a diagonal branch which is angiographically normal. The left circumflex is occluded in the midsegment after the bifurcation of a first obtuse marginal branch. The circumflex is left dominant, has mild luminal irregularities in the posterior descending artery. The right coronary is nondominant, occluded in the proximal segment. PERCUTANEOUS INTERVENTION The left coronary circulation was selectively engaged with a 6-Dutch AL-2 guide catheter. A 0.014 inch, 180 cm Access [employer] Runthrough wire was navigated down beyond the chronic occlusion into the second obtuse marginal branch. We were unable to get the wire to navigate down to the distal posterior descending branch. A 1.25 x 6 mm balloon was then deployed in the occlusion on three sequential inflations to 6 atmospheres. A second wire 0.014 inch, 180 cm app2youwater wire was then navigated down through the occlusion and into the distal circumflex coronary artery. A 2.5 x 15 mm balloon was then deployed in the chronic occlusion. Repeat angiography showed severe residual stenosis but now ISABEL-III flow. A 2.5 x 26 mm RX Integrity bare metal stent was then deployed in the mid left circumflex coronary artery occlusion. Repeat angiography showed no residual stenosis, ISABEL-III flow. The wires were removed. A HemoBand was applied. DEFIBRILLATION Towards the end of the percutaneous intervention the patient developed ventricular fibrillation at which time a single 200 joule defibrillation was performed with brief CPR. Tenriism of sinus rhythm was obtained. Hemodynamics returned to normal. The patient was alert. Respiratory status was good. I suspect this is likely a reperfusion arrhythmia. The patient was otherwise stable at the completion of the procedure. CONCLUSIONS 1. 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 2. Successful percutaneous intervention with bare metal stent to the mid left circumflex coronary artery. 3. Successful CPR and defibrillation for ventricular fibrillation. PLAN The patient will be monitored closely for any post-procedural complications. He was initiated on Plavix. He was cleared by neurosurgery to maintain Plavix. Since he has a bare metal stent he will need at least 3 months ideally. We are going to watch him in the cardiac intensive care unit for his arrhythmia, although I suspect that was reperfusion and he has been otherwise stable since completion of procedure. MD LEO Ahumada/MARICRUZ /11:21 AM /11:29 AM
--- NOTE | 2016-11-29 14:22 | ECHRPT ---
Indication: CHEST PAIN CONCLUSIONS Mildly dilated left ventricle. Mild concentric left ventricular hypertrophy. The left ventricular systolic function is low normal with an estimated ejection fraction in the rang e of 50- 55%. Inferior and inferolateral hypokinesis.Mild mitral valve regurgitation. There is mild tricuspid valve regurgitation. Normal estimated pulmonary pressures. BP: 142 / 84 HR: 112 Rhythm: Sinus MEASUREMENTS (Male / Female) Normal Values Technical Quality:Fair 2D ECHO LV Diastolic Diameter PLAX 4.4 cm 4.2 - 5.9 / 3.9 - 5.3 cm LV Systolic Diameter PLAX 4.0 cm IVS Diastolic Thickness 1.2 cm 0.6 - 1.0 / 0.6 - 0.9 cm LVPW Diastolic Thickness 0.6 cm 0.6 - 1.0 / 0.6 - 0.9 cm LV Relative Wall Thickness 0.4 LVOT Diameter 1.9 cm Aortic Root Diameter 3.4 cm LA Systolic Diameter LX 1.3 cm 3.0 - 4.0 / 2.7 - 3.8 cm M-MODE AV Cusp Separation MM 2.2 cm DOPPLER AV Peak Velocity 131.0 cm/s AV Peak Gradient 6.9 mmHg AV Mean Gradient 4.0 mmHg AV Velocity Time Integral 19.3 cm LVOT Peak Velocity 88.7 cm/s LVOT Peak Gradient 3.1 mmHg LVOT Velocity Time Integral 13.7 cm LVOT Cardiac Index 2454.1 cm/minm AV Area Cont Eq vti 2.0 cm AV Area Cont Eq pk 1.9 cm Mitral E Point Velocity 50.3 cm/s Mitral A Point Velocity 103.0 cm/s Mitral E to A Ratio 0.5 LV E' Lateral Velocity 10.8 cm/s Mitral E to LV E' Lateral Ratio 4.7 LV E' Septal Velocity 4.1 cm/s Mitral E to LV E' Septal Ratio 12.3 TR Peak Velocity 243.0 cm/s TR Peak Gradient 23.6 mmHg PV Peak Velocity 57.9 cm/s PV Peak Gradient 1.3 mmHg FINDINGS LEFT VENTRICLE Mildly dilated left ventricle. Mild concentric left ventricular hypertrophy. The left ventricular systolic function is low normal with an estimated ejection fraction in the rang e of 50- 55%. Inferior and inferolateral hypokinesis. RIGHT VENTRICLE Normal right ventricular size and systolic function. LEFT ATRIUM The left atrial size is normal. RIGHT ATRIUM The right atrial size is normal. ATRIAL SEPTUM Normal atrial septal thickness without atrial level shunting by limited color doppler interrogation. AORTA The aortic root and proximal ascending aorta are normal in size on limited imaging. MITRAL VALVE Mild mitral valve regurgitation. AORTIC VALVE Trileaflet aortic valve. No aortic valve stenosis or regurgitation. TRICUSPID VALVE Structurally normal tricuspid valve. There is mild tricuspid valve regurgitation. Normal estimated pulmonary pressures. PULMONARY VALVE The pulmonary valve is not well visualized. VESSELS The inferior vena cava is normal in size. PERICARDIUM No pericardial effusion. Cayden Alcocer MD, FACC (Electronically Signed) Final Date:29 November 2016 14:21
[2016-11-29] MEDS: ATORVASTATIN 40 MG TAB PO SCH (21:54)
[2016-11-29] MEDS: ACETAMINOPHEN/HYDROcodone 325 MG/10 MG TAB PO PRN (21:56)
[2016-11-29] MEDS: METOPROLOL TARTRATE 25 MG TAB PO SCH (21:56)
[2016-11-30] VITALS (19 sets, daily range): BP systolic 116–137; BP diastolic 52–90; PULSE 51–100; RESP 12–20; TEMP 97.5–98.7; O2SAT 95–99
[2016-11-30 05:28] LABS: AUTOMATED NEUTROPHIL # 2.2 TH/MM3 (1.8-7.7); BASOPHIL % 0.3 % (0.0-2.0); EOSINOPHIL # 0.1 TH/MM3 (0-0.4); EOSINOPHIL % 2.4 % (0.0-4.0); HEMATOCRIT 38.2 % (39.0-51.0); HEMO FLAGS DIFF FINAL; LYMPH % 21.7 % (9.0-44.0); LYMPHOCYTE # 0.7 TH/MM3 (1.0-4.8); MEAN CELL VOLUME 92.3 FL (80.0-100.0); MEAN CORPUSCULAR HEMOGLOBIN 31.4 PG (27.0-34.0); MONO % 11.5 % (0.0-8.0); NEUT % 64.1 % (16.0-70.0); PLATELET COUNT 177 TH/MM3 (150-450); RED BLOOD COUNT 4.14 MIL/MM3 (4.50-5.90); RED CELL DISTRIBUTION WIDTH 12.4 % (11.6-17.2); WHITE BLOOD COUNT 3.5 TH/MM3 (4.0-11.0)
[2016-11-30 05:53] LABS: BICARBONATE 28.7 MEQ/L (21.0-32.0); POTASSIUM 3.7 MEQ/L (3.5-5.1)
[2016-11-30 05:56] LABS: HDL CHOLESTEROL 44.5 MG/DL (40.0-60.0)
--- NOTE | 2016-11-30 08:16 | PD.CARD.PN ---
Subjective Subjective Remarks Pt feels well, no complaints. Objective Medications Administered Medications Medications (Trade) Dose Ordered Sig/Kayden Route PRN Reason Start Time Stop Time Status Last Admin Dose Admin Sodium Chloride (NS Flush) 2 ml BID IV FLUSH 11/28/16 09:00 11/29/16 21:57 Nitroglycerin (Nitrostat Sl) 0.4 mg Q5M PRN SL CHEST PAIN 11/28/16 05:15 11/28/16 05:13 Acetaminophen/ Hydrocodone Bitart ([place] 5-325 Mg) 1 tab Q4H PRN PO PAIN SCALE 3 TO 5 11/28/16 15:30 11/29/16 07:36 Acetaminophen/ Hydrocodone Bitart ([place] 10-325 Mg) 1 tab Q4H PRN PO PAIN SCALE 6 TO 10 11/28/16 15:30 11/29/16 21:56 Atorvastatin Calcium (Lipitor) 40 mg HS PO 11/29/16 21:00 11/29/16 21:54 Metoprolol Tartrate (Lopressor) 12.5 mg Q12HR PO 11/29/16 21:00 11/29/16 21:56 Vital Signs / I&O Vital Signs Date Time Temp Pulse Resp B/P Pulse Ox O2 Delivery O2 Flow Rate FiO2 11/30/16 06:00 92 11/30/16 05:00 84 11/30/16 04:00 86 11/30/16 03:00 74 11/30/16 03:00 98.7 86 12 120/79 97 11/30/16 02:00 70 11/30/16 01:00 78 11/30/16 00:00 92 11/29/16 23:00 98.7 91 12 91/60 95 11/29/16 23:00 83 11/29/16 22:00 114 11/29/16 21:00 120 11/29/16 20:00 128 11/29/16 19:00 116 11/29/16 19:00 98.4 122 22 135/78 94 11/29/16 18:10 100 11/29/16 17:00 87 11/29/16 16:00 106 11/29/16 15:15 97.9 108 19 138/88 99 11/29/16 15:13 113 11/29/16 14:00 99 11/29/16 13:59 97.8 109 20 127/77 97 11/29/16 11:37 97 Room Air I/O 11/29/16 11/29/16 11/29/16 11/30/16 11/30/16 11/30/16 07:00 15:00 23:00 07:00 15:00 23:00 Intake Total 0 ml 360 ml 450 ml Output Total 300 ml 350 ml 175 ml Balance -300 ml 10 ml 275 ml Intake Oral 0 ml 360 ml 450 ml Output Urine Total 300 ml 350 ml 175 ml # Voids 1 # Bowel Movements 1 Physical Exam GENERAL: This is a well-nourished, well-developed patient, in no apparent distress. CARDIOVASCULAR: Regular rate and rhythm without murmurs, gallops, or rubs. RESPIRATORY: Clear to auscultation. Breath sounds equal bilaterally. No wheezes , rales, or rhonchi. GASTROINTESTINAL: Abdomen soft, non-tender, nondistended. Normal active bowel sounds MUSCULOSKELETAL: Extremities without clubbing, cyanosis, or edema. NEURO: Alert & Oriented x4 to person, place, time, situation. Moves all ext x4 Laboratory Laboratory Tests Test 11/30/16 04:26 White Blood Count 3.5 TH/MM3 Red Blood Count 4.14 MIL/MM3 Hemoglobin 13.0 GM/DL Hematocrit 38.2 % Mean Corpuscular Volume 92.3 FL Mean Corpuscular Hemoglobin 31.4 PG Mean Corpuscular Hemoglobin 34.0 % Concent Red Cell Distribution Width 12.4 % Platelet Count 177 TH/MM3 Mean Platelet Volume 8.0 FL Neutrophils (%) (Auto) 64.1 % Lymphocytes (%) (Auto) 21.7 % Monocytes (%) (Auto) 11.5 % Eosinophils (%) (Auto) 2.4 % Basophils (%) (Auto) 0.3 % Neutrophils # (Auto) 2.2 TH/MM3 Lymphocytes # (Auto) 0.7 TH/MM3 Monocytes # (Auto) 0.4 TH/MM3 Eosinophils # (Auto) 0.1 TH/MM3 Basophils # (Auto) 0.0 TH/MM3 CBC Comment DIFF FINAL Differential Comment Sodium Level 133 MEQ/L Potassium Level 3.7 MEQ/L Chloride Level 97 MEQ/L Carbon Dioxide Level 28.7 MEQ/L Anion Gap 7 MEQ/L Blood Urea Nitrogen 17 MG/DL Creatinine 0.80 MG/DL Estimat Glomerular Filtration 93 ML/MIN Rate Random Glucose 80 MG/DL Calcium Level 8.9 MG/DL Total Creatine Kinase 197 U/L Triglycerides Level 74 MG/DL Cholesterol Level 120 MG/DL LDL Cholesterol 61 MG/DL HDL Cholesterol 44.5 MG/DL Cholesterol/HDL Ratio 2.69 RATIO Imaging Last Impressions Chest X-Ray 11/28/16 0240 Signed Impressions: Service Date/Time: November 02:59 - CONCLUSION: Low lung volumes. No acute cardiopulmonary disease identified Seb Aguilar MD Assessment and Plan Problem List: (1) CAD (coronary artery disease) Assessment and Plan: cont asa/plavix/statin/bb (2) Chest pain Assessment and Plan: no angina, slightly sore from cpr. (3) VF (ventricular fibrillation) Assessment and Plan: occurred during PCI; s/p cpr and defibrillation Assessment and Plan If no events on tele; hope to d/c home in the AM Mehdi Sevilla MD Nov 30, 2016 08:16
[2016-11-30] MEDS: SODIUM CHLORIDE 0.9% FLUSH 10 ML FLUSH IV FLUSH SCH ×2 (08:35→21:00)
[2016-11-30] MEDS: METOPROLOL TARTRATE 25 MG TAB PO SCH ×2 (08:35→21:00)
[2016-11-30] MEDS: CLOPIDOGREL 75 MG TAB PO SCH (08:36)
[2016-11-30] MEDS: ASPIRIN EC 81 MG TABEC PO SCH ×2 (08:36→09:00)
--- NOTE | 2016-11-30 11:09 | EKG ---
Date Performed: 11/28/2016 Time Performed: 15:07:27 PTAGE: 81 years EKG: SINUS TACHYCARDIA RIGHT BUNDLE BRANCH BLOCK LEFT ANTERIOR FASCICULAR BLOCK ABNORMAL ECG PREVIOUS TRACING : 11/28/2016 08.48 DOCTOR: Cayden Alcocer Interpretating Date/Time 11/30/2016 10:59:47
[2016-11-30] MEDS: ACETAMINOPHEN/HYDROcodone 325 MG/5 MG TAB PO PRN (13:29)
--- NOTE | 2016-11-30 13:46 | EKG ---
Date Performed: 11/30/2016 Time Performed: 06:16:28 PTAGE: 81 years EKG: Sinus rhythm Left axis deviation RBBB with left anterior fascicular block Inferior infarct - age undetermined Pos sible anterior infarct - age undetermined Low QRS voltages in precordial leads Abnormal ECG PREVIOUS TRACING : 11/29/2016 12.47 Since prior tracing, sinus rhythm is slower. DOCTOR: Mehdi Sevilla Interpretating Date/Time 11/30/2016 13:45:47
--- NOTE | 2016-11-30 13:46 | EKG ---
Date Performed: 11/29/2016 Time Performed: 12:47:14 PTAGE: 81 years EKG: Sinus tachycardia with sinus arrhythmia with PVC(s) Left axis deviation RBBB with left ante rior fascicular block Inferior infarct - age undetermined Possible anterior infarct - age undetermine d Low QRS voltages in precordial leads Abnormal ECG PREVIOUS TRACING : 11/28/2016 15.07 No change from prior tracing. DOCTOR: Mehdi Sevilla Interpretating Date/Time 11/30/2016 13:45:29
--- NOTE | 2016-11-30 15:23 | HHI.PR ---
Subjective Remarks Follow for chest pain in Status post PCI yesterday, with bare metal stent placement. Patient however had ventricular fibrillation status post CPR. Presently no chest pain, no shortness of breath. No palpitations. Objective Vitals Vital Signs Date Time Temp Pulse Resp B/P Pulse Ox O2 Delivery O2 Flow Rate FiO2 11/30/16 14:40 18 11/30/16 12:00 97.8 56 18 117/52 95 11/30/16 08:00 98.3 51 20 123/76 98 11/30/16 06:00 92 11/30/16 05:00 84 11/30/16 04:00 86 11/30/16 03:00 74 11/30/16 03:00 98.7 86 12 120/79 97 11/30/16 02:00 70 11/30/16 01:00 78 11/30/16 00:00 92 11/29/16 23:00 98.7 91 12 91/60 95 11/29/16 23:00 83 11/29/16 22:00 114 11/29/16 21:00 120 11/29/16 20:00 128 11/29/16 19:00 116 11/29/16 19:00 98.4 122 22 135/78 94 11/29/16 18:10 100 11/29/16 17:00 87 11/29/16 16:00 106 I/O 11/29/16 11/29/16 11/29/16 11/30/16 11/30/16 11/30/16 07:00 15:00 23:00 07:00 15:00 23:00 Intake Total 0 ml 360 ml 450 ml Output Total 300 ml 350 ml 175 ml Balance -300 ml 10 ml 275 ml Intake Oral 0 ml 360 ml 450 ml Output Urine Total 300 ml 350 ml 175 ml # Voids 1 # Bowel Movements 1 Result Diagram: 11/30/16 0426 11/30/16 0426 Imaging Last Impressions Chest X-Ray 11/28/16 0240 Signed Impressions: Service Date/Time: November 02:59 - CONCLUSION: Low lung volumes. No acute cardiopulmonary disease identified Seb Aguilar MD Objective Remarks GENERAL: Well-nourished, well-developed patient in NAD. CARDIOVASCULAR: Regular rate and rhythm. S1, S2 noted. No murmur appreciated. RESPIRATORY: Clear breath sounds GASTROINTESTINAL: Abdomen soft, non-tender, nondistended. Normoactive bowel sounds x4. MUSCULOSKELETAL: No obvious deformities. Extremities without clubbing, cyanosis , or edema. NEUROLOGICAL: Awake and alert. No obvious cranial nerve deficits. Procedures PCI to the mid circumflex artery A/P Problem List: (1) NSTEMI (non-ST elevated myocardial infarction) ICD Code: I21.4 Status: Acute (2) Hemorrhagic cerebrovascular accident (CVA) ICD Code: I61.9 Status: Acute Assessment and Plan Mr. Carlisle is an 81-year-old male patient with a known medical history of [place] x 5 years ago, CAD with stent placement, DM, HTN, COPD and history of CVA who presented to the ED this am with complaints of burning chest pain reported similar to his previous [place] years ago. He did admit to associated diaphoresis and dizziness. The patient recently had a right Thalmic hemorrhage on 11/08 and was discharged from [facility] to home on 11/26/16 off Plavix (previously placed on this for stents 5 years ago). NSTEMI - Off Plavix since right Thalmic hemorrhage 11/08 - Initial Troponin I - 0.09, max at 6.04. Status post cardiac catheterization after cleared by neurosurgery. Status post bare metal stenting left mid circumflex artery, however ventricular fibrillation during catheterization. Keep on telemetry, discharge tomorrow if no further events. Continue Plavix. - 12 lead EKG reviewed showing inferior lead q waves suggestive of old [place], right bundle branch block noted with no acute ischemic changes noted. - Nitroglycerin 0.4 mg SL q5 mins prn chest pain x 3 History of right Thalmic Hemorrhage on 11/08/16 - Patient currently asymptomatic. Denies any headache, lightheadedness or dizziness. Cleared by neurosurgery for cardiac catheterization and Plavix. GI Prophylaxis: Protonix DVT prophylaxis: SCDs/TEDs Discharge Planning Discharge tomorrow if cleared by cardiology Donovan Frank MD Nov 30, 2016 15:23
[2016-11-30] MEDS: ACETAMINOPHEN/HYDROcodone 325 MG/10 MG TAB PO PRN (17:31)
[2016-11-30] MEDS ORDERED: MUPIROCIN 2% OINT 22 GM TUBE TOPICAL SCH (21:00)
[2016-11-30] MEDS: MUPIROCIN 2% OINT 22 GM TUBE TOPICAL SCH (21:00)
[2016-11-30] MEDS: ATORVASTATIN 40 MG TAB PO SCH (21:00)
[2016-12-01] VITALS (14 sets, daily range): BP systolic 108–127; BP diastolic 59–74; PULSE 64–126; RESP 18; TEMP 97.6–98.6; O2SAT 97–99
[2016-12-01] MEDS: ACETAMINOPHEN/HYDROcodone 325 MG/10 MG TAB PO PRN ×2 (00:06→13:56)
[2016-12-01] MEDS: CLOPIDOGREL 75 MG TAB PO SCH (08:42)
[2016-12-01] MEDS: ASPIRIN EC 81 MG TABEC PO SCH (08:42)
[2016-12-01] MEDS: METOPROLOL TARTRATE 25 MG TAB PO SCH (08:42)
[2016-12-01] MEDS: MUPIROCIN 2% OINT 22 GM TUBE TOPICAL SCH (08:43)
[2016-12-01] MEDS: SODIUM CHLORIDE 0.9% FLUSH 10 ML FLUSH IV FLUSH SCH (08:43)
[2016-12-01] MEDS ORDERED: AMOXICILLIN/CLAVULANATE K 875 MG TAB PO SCH (10:21)
[2016-12-01] MEDS ORDERED: METOPROLOL TARTRATE 25 MG TAB PO ONE (10:30)
--- NOTE | 2016-12-01 10:34 | HHI.PR ---
Subjective Remarks F/U CHEST PAIN no cardiac events overnight, no arrhythmia, no shortness of breath or chest pain. R foot dog bite mildly painful. HR in the 110s though but no V fib. Objective Vitals Vital Signs Date Time Temp Pulse Resp B/P Pulse Ox O2 Delivery O2 Flow Rate FiO2 12/01/16 08:00 98.0 95 18 122/74 97 12/01/16 06:00 92 12/01/16 05:00 76 12/01/16 04:00 102 12/01/16 03:00 86 12/01/16 03:00 97.6 100 18 108/59 98 12/01/16 02:00 82 12/01/16 01:15 18 12/01/16 01:00 64 12/01/16 00:00 76 11/30/16 23:00 84 11/30/16 23:00 97.6 91 20 124/90 96 11/30/16 22:00 84 11/30/16 21:00 96 11/30/16 20:00 84 11/30/16 19:00 97.9 78 18 127/83 99 11/30/16 19:00 84 11/30/16 16:00 97.5 84 18 116/67 98 11/30/16 14:40 18 11/30/16 14:00 84 11/30/16 12:00 97.8 83 18 137/83 95 11/30/16 12:00 82 I/O 11/30/16 11/30/16 11/30/16 12/01/16 12/01/16 12/01/16 07:00 15:00 23:00 07:00 15:00 23:00 Intake Total 450 ml 720 ml Output Total 175 ml 150 ml Balance 275 ml 570 ml Intake Oral 450 ml 720 ml Output Urine Total 175 ml 150 ml # Voids 3 # Bowel Movements 2 Result Diagram: 11/30/1642511/30/16425 Objective Remarks GENERAL: Well-nourished, well-developed patient in NAD. CARDIOVASCULAR: Regular rate and rhythm. S1, S2 noted. No murmur appreciated. RESPIRATORY: Clear breath sounds GASTROINTESTINAL: Abdomen soft, non-tender, nondistended. Normoactive bowel sounds x4. MUSCULOSKELETAL: No obvious deformities. Extremities without clubbing, cyanosis , or edema. R foot medial aspect erthematous, mildly tender, no discharge. NEUROLOGICAL: Awake and alert. No obvious cranial nerve deficits. Procedures PCI to the mid circumflex artery A/P Problem List: (1) NSTEMI (non-ST elevated myocardial infarction) ICD Code: I21.4 Status: Acute (2) Hemorrhagic cerebrovascular accident (CVA) ICD Code: I61.9 Status: Acute Assessment and Plan Mr. Carlisle is an 81-year-old male patient with a known medical history of [place] x 5 years ago, CAD with stent placement, DM, HTN, COPD and history of CVA who presented to the ED this am with complaints of burning chest pain reported similar to his previous [place] years ago. He did admit to associated diaphoresis and dizziness. The patient recently had a right Thalmic hemorrhage on 11/08 and was discharged from [facility] to home on 11/26/16 off Plavix (previously placed on this for stents 5 years ago). NSTEMI - Off Plavix since right Thalmic hemorrhage 11/08 - Initial Troponin I - 0.09, max at 6.04. EKG reviewed showing inferior lead q waves suggestive of old [place], right bundle branch block noted with no acute ischemic changes noted. Status post cardiac catheterization after cleared by neurosurgery. Status post bare metal stenting of the left mid circumflex artery, however had ventricular fibrillation during catheterization. Continue Plavix. Telemetry checked, no ventricular fibrillation overnight, however remains tachycardic in the 110s, increase metoprolol. If heart rate is better this afternoon, may discharge home per cardiology. Echocardiogram showed an ejection fraction of 50-55% with LVH. History of right Thalmic Hemorrhage on 11/08/16 - Patient currently asymptomatic. Denies any headache, lightheadedness or dizziness. Cleared by neurosurgery for cardiac catheterization and Plavix. Right foot cellulitis-start Augmentin. Continue Bactroban. GI Prophylaxis: Protonix DVT prophylaxis: SCDs/TEDs Discharge Planning Discharge if tachycardia is controlled. Donovan Frank MD Dec 01, 2016 10:34
[2016-12-01] MEDS ORDERED: METO25TA3 PO (10:36)
[2016-12-01] MEDS ORDERED: PLAV75TA29 PO (10:36)
[2016-12-01] MEDS ORDERED: ASPI-99 PO (10:36)
[2016-12-01] MEDS ORDERED: ATOR40TA16 PO (10:36)
[2016-12-01] MEDS ORDERED: AMOX875T2 PO (10:36)
--- NOTE | 2016-12-01 14:30 | HHI.DS ---
Discharge Summary Admission Date Nov 28, 2016 at 10:06 Discharge Date: Dec 01, 2016 Admitting Diagnosis chest pain, rule out ACS (1) NSTEMI (non-ST elevated myocardial infarction) ICD Code: I21.4 Diagnosis: Principal (2) Hemorrhagic cerebrovascular accident (CVA) ICD Code: I61.9 Diagnosis: Secondary Procedures PCI to the mid circumflex artery Brief History - From Admission Written by Tiffany Gonzalez, acting as scribe for Dr. Carbajal on 11/28/16 at 05:10. The patient recently had a right thalmic hemorrhage on 11/08 and was discharged from [facility] to home on 11/26/16 off Plavix (was on Plavix for stent placed 5 years ago?) Patient complains of "burning" chest pain. Reports pain is similar to prior myocardial infarction. Patient states his chest started burning and hurting this morning; states that he was taking a couple of pills when the pain started - symptoms started at 7 a.m. The patient states he was diaphoretic and dizzy with chest pain. Denies shortness of breath, denies radiating pain, denies nausea, denies syncope. Symptom duration: constant, nothing made the pain better upon my initial interview. Pain not exacerbated with a deep breath Denies fever, nausea, vomiting, diarrhea, dysuria, hematuria, black or red stool , syncope, or recent fall. Gave nitroglycerin 0.4 mg sublingual during visit; states his chest pain resolved following administration of NTG. The patient has some memory impairment which limits history taking. 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 He doesn't recall the name of his PCP either. His PCP is Minh Sow, DO - per rehab discharge summary (has appt 12/04). CBC/BMP: 11/30/16 0426 11/30/16 0426 Significant Findings Laboratory Tests Test 11/28/16 11/29/16 11/29/16 11/30/16 15:43 07:21 07:25 04:26 Troponin I 5.80 NG/ML (0.02-0.05) Red Blood Count 4.08 MIL/MM3 4.14 MIL/MM3 (4.50-5.90) (4.50-5.90) Hemoglobin 12.8 GM/DL (13.0-17.0) Hematocrit 36.8 % 38.2 % (39.0-51.0) (39.0-51.0) Neutrophils (%) (Auto) 72.5 % (16.0-70.0) Monocytes (%) (Auto) 9.1 % (0.0-8.0) 11.5 % (0.0-8.0) Lymphocytes # (Auto) 0.7 TH/MM3 0.7 TH/MM3 (1.0-4.8) (1.0-4.8) Sodium Level 133 MEQ/L 133 MEQ/L (136-145) (136-145) Chloride Level 97 MEQ/L 97 MEQ/L (98-107) (98-107) White Blood Count 3.5 TH/MM3 (4.0-11.0) PE at Discharge GENERAL: Well-nourished, well-developed patient in NAD. CARDIOVASCULAR: Regular rate and rhythm. S1, S2 noted. No murmur appreciated. RESPIRATORY: Clear breath sounds GASTROINTESTINAL: Abdomen soft, non-tender, nondistended. Normoactive bowel sounds x4. MUSCULOSKELETAL: No obvious deformities. Extremities without clubbing, cyanosis , or edema. R foot medial aspect erthematous, mildly tender, no discharge. NEUROLOGICAL: Awake and alert. No obvious cranial nerve deficits. Pt update on day of discharge No fever, no chills. No overnight events. Denies any chest pain, no events on telemetry. Hospital Course Mr. Carlisle is an 81-year-old male patient with a known medical history of [place] x 5 years ago, CAD with stent placement, DM, HTN, COPD and history of CVA who presented to the ED this am with complaints of burning chest pain reported similar to his previous [place] years ago. He did admit to associated diaphoresis and dizziness. The patient recently had a right Thalmic hemorrhage on 11/08 and was discharged from [facility] to home on 11/26/16 off Plavix (previously placed on this for stents 5 years ago). Initial Troponin I - 0.09, max at 6.04. EKG reviewed showing inferior lead q waves suggestive of old [place], right bundle branch block noted with no acute ischemic changes noted. Status post cardiac catheterization after cleared by neurosurgery. Status post bare metal stenting of the left mid circumflex artery, however had ventricular fibrillation during catheterization. Continue Plavix per cardiology. Telemetry prior to discharge did not show any ventricular fibrillation overnight , however remains tachycardic in the 110s, metoprolol was increased. Echocardiogram showed an ejection fraction of 50-55% with LVH. During the course of the day, patient psych are the was controlled. Patient was discharge after cleared by cardiology. Patient's thalamic hemorrhage remained stable without any symptoms of headache, lightheadedness or dizziness. Patient was also started on Augmentin and Bactroban topically for a right foot cellulitis. Patient will follow-up with his primary care physician and cardiology on discharge. Pt Condition on Discharge: Good Discharge Disposition: Discharge Home Discharge Time: > 30 minutes Discharge Instructions DIET: Follow Instructions for: Heart Healthy Diet Activities you can perform: Regular-No Restrictions Follow up Referrals: Cardiology - 2 Weeks PCP Follow-up - 1 Week New Medications: Amoxicillin-Clavulanate (Amoxicillin-Clavulanate) 875-125 mg Tab 875 MG PO Q12HR cellulitis #[address] (Adult Aspirin EC Low Strength) 81 Mg Tabec 81 MG PO DAILY NSTEMI #30 TAB Atorvastatin (Atorvastatin) 40 Mg Tab 40 MG PO HS Cholesterool #30 TAB Clopidogrel (Plavix) 75 Mg Tab 75 MG PO DAILY NSTEMI #30 TAB Metoprolol Tartrate (Metoprolol Tartrate) 25 Mg Tab 25 MG PO Q12HR NSTEMI #60 TAB Continued Medications: Acetaminophen (Eq Acetaminophen) 325 Mg Tab 650 MG PO Q4H PRN pain 1-6 #30 TAB Amlodipine (Norvasc) 10 Mg Tab 10 MG PO DAILY goal SBP<150 hypertension #30 Ref 0 TAB Hydrocodone-Acetaminophen (Hydrocodone-Acetaminophen) 5-325 mg Tab 1 TAB PO Q4H PRN pain 7-10 #20 TAB Lidocaine (Lidoderm) 5 % Adh..patch 1 PATCH T-DERMAL DAILY #10 Melatonin (Gnp Melatonin Maximum Str) 5 Mg Tab 5 MG PO HS Days 30 TAB Pantoprazole (Protonix) 20 Mg Tab 20 MG PO DAILY Days 30 TAB Sennosides-Docusate Sodium (Senna Plus 8.6-50 mg) 1 Tab Tab 1 TAB PO BID constipation #14 Ref 0 TAB Discontinued Medications: Metoprolol Tartrate (Metoprolol Tartrate) 25 Mg Tab 12.5 MG PO Q12HR Days 30 TAB Donovan Frank MD Dec 01, 2016 14:30
--- NOTE | 2016-12-01 14:52 | PD.CARD.PN ---
Subjective Subjective Remarks Pt feels well, wants to go home, had some mild sinus tachy this AM during ADLs; no sx (and a short atrial run) seen on tele. Objective Medications Administered Medications Medications (Trade) Dose Ordered Sig/Kayden Route PRN Reason Start Time Stop Time Status Last Admin Dose Admin Sodium Chloride (NS Flush) 2 ml BID IV FLUSH 11/28/16 09:00 12/01/16 08:43 Nitroglycerin (Nitrostat Sl) 0.4 mg Q5M PRN SL CHEST PAIN 11/28/16 05:15 11/28/16 05:13 Acetaminophen/ Hydrocodone Bitart ([place] 5-325 Mg) 1 tab Q4H PRN PO PAIN SCALE 3 TO 5 11/28/16 15:30 11/30/16 13:29 Acetaminophen/ Hydrocodone Bitart ([place] 10-325 Mg) 1 tab Q4H PRN PO PAIN SCALE 6 TO 10 11/28/16 15:30 12/01/16 13:56 Clopidogrel Bisulfate (Plavix) 75 mg DAILY PO 11/30/16 09:00 12/01/16 08:42 Atorvastatin Calcium (Lipitor) 40 mg HS PO 11/29/16 21:00 11/30/16 21:00 Aspirin (Ecotrin Ec) 81 mg DAILY PO 11/29/16 11:15 12/01/16 08:42 Mupirocin (Bactroban 2% Oint) 1 applic BID TOPICAL 11/30/16 21:00 12/01/16 08:43 Amoxicillin/ Clavulanate Potassium (Augmentin) 875 mg Q12HR PO 12/01/16 10:21 12/01/16 10:59 Vital Signs / I&O Vital Signs Date Time Temp Pulse Resp B/P Pulse Ox O2 Delivery O2 Flow Rate FiO2 12/01/16 14:00 82 12/01/16 13:00 84 12/01/16 12:00 72 12/01/16 12:00 98.6 83 18 127/62 99 12/01/16 10:00 86 12/01/16 09:00 126 12/01/16 08:00 98.0 95 18 122/74 97 12/01/16 08:00 114 12/01/16 07:00 78 12/01/16 06:00 92 12/01/16 05:00 76 12/01/16 04:00 102 12/01/16 03:00 86 12/01/16 03:00 97.6 100 18 108/59 98 12/01/16 02:00 82 12/01/16 01:15 18 12/01/16 01:00 64 12/01/16 00:00 76 11/30/16 23:00 84 11/30/16 23:00 97.6 91 20 124/90 96 11/30/16 22:00 84 11/30/16 21:00 96 11/30/16 20:00 84 11/30/16 19:00 97.9 78 18 127/83 99 11/30/16 19:00 84 11/30/16 16:00 97.5 84 18 116/67 98 I/O 11/30/16 11/30/16 11/30/16 12/01/16 12/01/16 12/01/16 07:00 15:00 23:00 07:00 15:00 23:00 Intake Total 450 ml 720 ml Output Total 175 ml 150 ml Balance 275 ml 570 ml Intake Oral 450 ml 720 ml Output Urine Total 175 ml 150 ml # Voids 3 # Bowel Movements 2 Physical Exam GENERAL: This is a well-nourished, well-developed patient, in no apparent distress. CARDIOVASCULAR: Regular rate and rhythm without murmurs, gallops, or rubs. RESPIRATORY: Clear to auscultation. Breath sounds equal bilaterally. No wheezes , rales, or rhonchi. GASTROINTESTINAL: Abdomen soft, non-tender, nondistended. Normal active bowel sounds MUSCULOSKELETAL: Extremities without clubbing, cyanosis, or edema. NEURO: Alert & Oriented x4 to person, place, time, situation. Moves all ext x4 Imaging Last Impressions Chest X-Ray 11/28/16 0240 Signed Impressions: Service Date/Time: November 02:59 - CONCLUSION: Low lung volumes. No acute cardiopulmonary disease identified Seb Aguilar MD Assessment and Plan Problem List: (1) CAD (coronary artery disease) Assessment and Plan: cont asa/plavix/statin/bb (increased lopressor to 50mg bid ) (2) Chest pain Assessment and Plan: resolved (3) VF (ventricular fibrillation) Assessment and Plan: occurred during PCI; s/p cpr and defibrillation Assessment and Plan Ok to d/c home on increased dose of metoprolol, to f/u with Mehdi Hatch MD Dec 01, 2016 14:52
[2016-12-01] MEDS ORDERED: METOPROLOL TARTRATE 25 MG TAB PO SCH (21:00)
[2016-12-01] MEDS ORDERED: METOPROLOL TARTRATE 50 MG TAB PO SCH (21:00)
== END 2016-12-01 15:20 | disposition home or self-care (01) | DRG 248 ==
LOC: NEPC 01:34 → NEDA 03:48 → OBSVTOIN 10:06 → N04A 12:18 → HCIS 11-29 12:35
PROVIDERS: ADMIT Hospitalist; ATTEND Hospitalist
PROC: 5A12012 Performance of Cardiac Output, Single, Manual (ICD-10-PCS; 2016-11-29)
PROC: 02703ZZ Dilation of Coronary Artery, One Artery, Percutaneous Approach (ICD-10-PCS; 2016-11-29)
PROC: 4A023N7 Measurement of Cardiac Sampling and Pressure, Left Heart, Percutaneous Approach (ICD-10-PCS; 2016-11-29)
PROC: B2111ZZ Fluoroscopy of Multiple Coronary Arteries using Low Osmolar Contrast (ICD-10-PCS; 2016-11-29)
PROC: 5A2204Z Restoration of Cardiac Rhythm, Single (ICD-10-PCS; 2016-11-29)
PROC: 02703DZ Dilation of Coronary Artery, One Artery with Intraluminal Device, Percutaneous Approach (ICD-10-PCS; principal; 2016-11-29 09:45)
DX: I21.4 Non-ST elevation (NSTEMI) myocardial infarction (principal); I49.01 Ventricular fibrillation; L03.115 Cellulitis of right lower limb; J44.9 Chronic obstructive pulmonary disease, unspecified; E11.9 Type 2 diabetes mellitus without complications; I10 Essential (primary) hypertension; R00.0 Tachycardia, unspecified; E78.5 Hyperlipidemia, unspecified; I25.10 Atherosclerotic heart disease of native coronary artery without angina pectoris; I45.10 Unspecified right bundle-branch block; N40.0 Benign prostatic hyperplasia without lower urinary tract symptoms; Z86.73 Personal history of transient ischemic attack (TIA), and cerebral infarction without residual deficits; I25.2 Old myocardial infarction; Z95.5 Presence of coronary angioplasty implant and graft; Z87.891 Personal history of nicotine dependence; W54.0XXA Bitten by dog, initial encounter
CPT/HCPCS: 71010; 80048; 80053; 80061; 82550; 82948; 83690; 83735; 84484; 85002; 85025; 92928; 93005; 93306; 93458; C1725; C1769; C1876; C1887; C1893; C9113; J1644; J2250; J3010; Q9967